=== PATIENT | female | born 1965 | race Caucasian/White ===

== ENCOUNTER 2023-10-30 14:08 | Outpatient (AMB) | payer BC, SELFPAY ==
[2023-10-30 14:25] VITALS: BP 140/72; PULSE 85; O2SAT 96; BMI 32.3
--- NOTE | 2023-10-30 14:25 | A.OFFPC_ITS ---
Vital Signs 10/30/23 14:25 Height 5 ft Weight 165 lb 4 oz BMI 32.3 BP 140/72 H Blood Pressure Location Rt brachial Position Sitting Pulse 85 Pulse Source Pulse Oximeter Pulse Oximetry (%) 96 Oxygen Delivery Method Room Air Intake Visit Reasons: New patient, High BP, Asthma Intake Note: pt is here to est care Last A1c was done by Endo who controls thyroid last month 7.3 Allergies aspirin Allergy (Intermediate, Verified 10/30/23 14:32) Difficulty Breathing Penicillins Allergy (Intermediate, Verified 10/30/23 14:32) Difficulty Breathing sulfate ion Allergy (Intermediate, Verified 10/30/23 14:32) Rash Tobacco use date assessed: 10/30/23 Dental Screening Dental Screen Date: 10/30/23 Did you have a dental visit in the last 12 months?: Yes Did you have a dental problem in the last 6 months where you did not have access to dental care?: No Was dental information given to patient?: Patient has dentist HPI New patient, High BP, Asthma HPI Details New pt is here to establish care. Pt sees endo due to diabetes and graves disease (Dr. Leos and Dr. Lombardo). Pt reports her A1C 2 months ago was 7.3. Pt has asthma (allergic). She just finished 5 years of injections. Pt sees a psychiatrist due to anxiety. Denies any SI and HI. Colon screen is up to date, repeat due in April. Mammo is up to date. 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 HTN: Blood pressure is managed with amlodipine-benazepril 5-10mg. Will have pt monitor her blood pressure at home and drop off readings. Dyslipidemia: On atorvastatin 20mg. Will continue this med and order labs. Denies chest pain, shortness of breath, headache, dizziness, and blurred vision. Pt reports dermatitis to her hands. She reports that this does itch and burn. ? eczema. Will refer to derm and send clobetasol. 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 1. Little interest or pleasure in doing things: not at all 2. Feeling down, depressed, or hopeless: not at all 3. Trouble falling or staying asleep, or sleeping too much: several days 4. Feeling tired or having little energy: not at all 5. Poor appetite or overeating: not at all 6. Feeling bad about yourself - or that you are a failure or have let yourself or your family down: not at all 7. Trouble concentrating on things, such as reading the newspaper or watching television: not at all 8. Moving or speaking so slowly that other people could have noticed. Or the opposite - being so fidgety or restless that you have been moving around a lot more than usual: not at all 9. Thoughts that you would be better off or of hurting yourself in some way: not at all Total score: 1 Depression Screening Interpretation: Negative Depression Screening Done: Yes 41229 - PHQ-9 Billing: Yes Source: Developed by Drs. Gunner Richard, Pamela Camarena, Ilya Ellis and colleagues, with an educational nyasia from [employer]. Thrive Questionnaire Date Thrive assessed: 10/30/23 I am a: Patient What is your living situation today?: I have a steady place to live Within the past 12 months, did the food you bought not last and you didn't have the money to get more?: Never true Within the past 12 months, did you worry whether your food would run out before you got money to buy more?: Never true Do you have trouble paying for medicines?: No Do you have trouble getting transportation to medical appointments?: No Do you have trouble paying your heating and electricity bill?: No Do you have trouble taking care of your child, family member or friend?: No Do you have trouble with day-to-day activities such as bathing, preparing meals, shopping, managing finances, etc.?: No Are you currently unemployed and looking for a job?: No Are you interested in more education?: No Currently or been in a relationship where the following occur: no concerns reported THRIVE Score: 0 AUDIT C Alcohol Use Questionnaire (AUDIT-C) 1. How often do you have a drink containing alcohol?: Never Total Score: 0 JENNIFER-7 AMB Questionnaire JENNIFER-7 Date JENNIFER - 7 assessed: 10/30/23 Feeling nervous, anxious, or on edge: 3 = Nearly every day Not being able to stop or control worryin = Nearly every day Worrying too much about different things: 3 = Nearly every day Trouble relaxin = More than half the days Being so restless that it is hard to sit still: 2 = More than half the days Becoming easily annoyed or irritable: 3 = Nearly every day Feeling afraid as if something awful might happen: 0 = Not at all Total JENNIFER-7 score (0-4 normal; 5-9 mild; 10-14 moderate; 15-21 severe): 16 Source: Developed by Drs. Gunner Richard, Pamela Camarena, Ilya Ellis and colleagues, with an educational nyasia from [employer]. JENNIFER-7 Assessment Billing JENNIFER-7 Assessment Tool: JENNIFER-7 Assessment 64912 (pt has a psychiatrist) Review of Systems Const Reports as per HPI Physical exam (Primary Care) Vital Signs: Last Vital Signs Pulse 85 10/30/23 14:25 BP 140/72 H 10/30/23 14:25 Pulse Ox 96 10/30/23 14:25 Oxygen Delivery Method Room Air 10/30/23 14:25 BMI result Body Mass Index 32.3 Tobacco/Smoking Status: Tobacco use Status Tobacco use date assessed 10/30/23 10/30/23 14:45 Patient Tobacco Use Status Never used Tobacco 10/30/23 14:45 e-Cigarette/Vaping Use Never Used 10/30/23 14:45 PHQ-9: PHQ-9 Score PHQ-9: Total score 1 10/30/23 15:16 Depression Screening Interpretation: Negative Thrive Assessment: Date of Thrive Assessment Date Thrive assessed 10/30/23 10/30/23 14:49 Currently or been in a relationship where the following occur: no concerns reported Const General: cooperative Nutritional Appearance: obese Orientation/consciousness: patient oriented x3 Resp Effort & Inspection: normal respiratory effort Auscultation: clear to auscultation bilaterally Cardio Rate: regular rate Rhythm: regular rhythm Heart sounds: S1 normal heart sound present and S2 normal heart sound present Skin Other: palmar aspect of bilat hands with cracking, patches of erythema, excoriations, splitting, ? eczema Neuro General: patient oriented x3 Extrem Right lower extremity: no edema Left lower extremity: no edema Psych Appearance: grossly normal Mental Status: mental status grossly normal Speech and movement: Normal speech and movement present Affect: normal affect Attitude: cooperative Thought process: Normal thought process present Thought content: Normal thought content present Insight: Good insight present (Psych) Judgement: Good judgement present (Psych) Assessment and Plan Assessment & Plan (1) Dermatitis: Code(s): L30.9 - Dermatitis, unspecified Plan: Referred to derm, clobetasol sent (2) HTN (hypertension): Code(s): I10 - Essential (primary) hypertension Plan: Pt will monitor her BP at home and drop off readings Plan The patient agreed to the use of a medical billing clerk for this encounter. Scribed for FABIAN Murray by Livier Loza medical billing clerk, on 10/30/2023 at 15:15 EST. Orders: Orders Complete Blood Count Auto Diff Today I10 - Essential (primary) hypertension Comprehensive [place]. Panel Fast Today I10 - Essential (primary) hypertension TSH reflex Free T4 Today I10 - Essential (primary) hypertension UA CC w/rflx Micro + Cult Today I10 - Essential (primary) hypertension Lipid Panel Today I10 - Essential (primary) hypertension Referrals Dermatology Referral L30.9 - Dermatitis, unspecified Medications: New clobetasol 0.05% 1 appl topical BID 60 grams 0RF 2 weeks Coding Level of Care Code New Pt Level 3 (96592) Diagnoses Dermatitis L30.9 HTN (hypertension) I10 Additional Codes JENNIFER-7 Assessment Billing - JENNIFER-7 Assessment Tool: JENNIFER-7 Assessment 50047 ([id number])
== END 2023-10-30 15:32 | disposition home or self-care (01) ==
PROVIDERS: PCP Nurse Practitioner Family; Visit Provider Nurse Practitioner Family
DX: L30.9 Dermatitis, unspecified (principal); I10 Essential (primary) hypertension
CPT/HCPCS: 99203

== ENCOUNTER 2024-02-26 06:07 | Outpatient (REF) | payer BC, SELFPAY ==
[2024-02-26 11:40] LABS: MANUAL DIFF FLAG NO
[2024-02-26 11:50] LABS: Basophils Absolute Auto 0.2 X10*3/uL (0.0-0.2); Basophils Percent Auto 1.5 % (0-2); Eosinophils Absolute Auto 0.6 X10*3/uL (0.0-0.4); Eosinophils Percent Auto 5.9 % (0-4); Hematocrit 41.3 % (37.0-47.0); Hemoglobin 13.4 g/dl (12.0-16.0); Imm Gran Abs Auto 0.03 X10*3/uL (0.00-0.03); Imm Gran Pct Auto 0.3 % (0.0-0.4); Lymphocytes Absolute Auto 3.3 X10*3/uL (1.2-4.9); Lymphocytes Percent Auto 33.6 % (20-40); Mean Corpuscular HGB Conc 32.4 g/dl (31.0-35.0); Mean Corpuscular Hemoglobin 28.3 pg (27.0-33.0); Mean Corpuscular Volume 87.3 fL (80.0-98.0); Mean Platelet Volume 9.5 fL (9.4-12.3); Monocytes Absolute Auto 0.7 X10*3/uL (0.1-1.2); Monocytes Percent Auto 7.5 % (2-11); Neutrophils Percent Auto 51.2 % (45-73); Platelet Count 398 X10*3/uL (160-400); Red Blood Count 4.73 X10*6/uL (4.20-5.50); Red Cell Distribution Width 13.7 % (11.0-16.0); White Blood Count 9.8 X10*3/uL (4.8-10.8)
[2024-02-26 11:54] LABS: Estimated Average Glucose 174 mg/dL; Hemoglobin A1c % 7.7 % (<6.0)
[2024-02-26 12:08] LABS: Alanine Aminotransferase 27 U/L (0-31); Albumin Level 4.3 g/dL (3.5-5.0); Alkaline Phosphatase 138 U/L (39-117); Anion Gap 15 (12-20); Aspartate Amino Transferase 17 U/L (5-31); Bilirubin Total 0.5 mg/dL (0.0-1.0); Blood Urea Nitrogen 15 mg/dL (9-16); Calcium 9.8 mg/dL (8.4-10.2); Carbon Dioxide 22 mmol/L (22-29); Chloride 107 mmol/L (96-108); Cholesterol 154 mg/dL (<200); Estimated Glomerular Filt Rate > 60; Glucose Fasting 198 mg/dL (60-99); HDL Cholesterol 51 mg/dL (>40); LDL Cholesterol Calculated 76 mg/dL (<100); Potassium 4.1 mmol/L (3.3-5.1); Sodium 140 mmol/L (135-145); Total Protein 7.4 g/dL (6.5-8.0); Triglycerides 136 mg/dL (<150)
[2024-02-26 12:29] LABS: TSH reflex Free T4 2.93 uIU/mL (0.32-4.0)
== END 2024-02-26 06:08 | disposition home or self-care (01) ==
LOC: HO.HMGCLDS 06:07
PROVIDERS: PCP Nurse Practitioner Family; Visit Provider Nurse Practitioner Family
DX: I10 Essential (primary) hypertension (principal); E11.9 Type 2 diabetes mellitus without complications
CPT/HCPCS: 36415; 80053; 80061; 83036; 84443; 85025

== ENCOUNTER 2024-02-28 05:30 | Outpatient (REF) | payer BC, SELFPAY ==
[2024-02-28 11:26] LABS: Appearance Urine Clear; Color Urine Yellow; Glucose Urine UA 100 mg/dL (Negative); Leukocyte Esterase Urine Negative (Negative); Nitrite Urine Negative (Negative); PH 5.5 (5.0-9.0); Urine Blood Negative (Negative); Urine Ketones Negative (Negative); Urine Protein Negative (Neg-Trace)
== END 2024-02-28 05:31 | disposition home or self-care (01) ==
LOC: HO.HMGCLNP 05:30
PROVIDERS: PCP Nurse Practitioner Family; Visit Provider Nurse Practitioner Family
DX: I10 Essential (primary) hypertension (principal)
CPT/HCPCS: 81003

== ENCOUNTER 2024-03-24 08:04 | Outpatient (AMB) | payer BC, SELFPAY ==
--- NOTE | 2024-03-24 08:18 | MHC.PC.OV ---
Vital Signs 03/24/24 08:22 Weight 166 lb 6 oz BP 110/68 Blood Pressure Location Rt brachial Position Sitting Pulse 72 Pulse Source Pulse Oximeter Pulse Oximetry (%) 98 Oxygen Delivery Method Room Air Intake Visit Reasons: DM followup Intake Note: Patient here for DM f/u. Allergies aspirin Allergy (Intermediate, Verified 03/24/24 08:20) Difficulty Breathing Penicillins Allergy (Intermediate, Verified 03/24/24 08:20) Difficulty Breathing sulfate ion Allergy (Intermediate, Verified 03/24/24 08:20) Rash metformin Adverse Reaction (Uncoded 03/24/24 08:21) rash Medication List - Last Reconciled 03/24/24 by Rodger Starr, NEGATIVE ASSEMBLER- albuterol (refill) 90 mcg/actuation mcg inhalation amlodipine-benazepril 5-10 mg 1 cap PO DAILY atenolol 25 mg PO DAILY atorvastatin 20 mg PO BEDTIME buspirone 5 mg PO BID cetirizine (Zyrtec) 10 mg PO DAILY PRN clobetasol 0.05% 1 appl topical BID 2 weeks clonazepam 0.25 mg PO TID fluticasone furoate-vilanterol 100-25 mcg/dose (Breo Ellipta) 1 inh inhalation DAILY methimazole 10 mg PO DAILY omeprazole magnesium (Prilosec OTC) 20 mg PO DAILY sennosides-docusate sodium 8.6-50 mg (Colace 2-In-1) 1 tab-cap PO BEDTIME sitagliptin phosphate (Januvia) 100 mg PO DAILY tirzepatide (Mounjaro) 2.5 mg (0.5 mL) subcut QWEEK 4 weeks Tobacco use date assessed: 10/30/23 Dental Screening Dental Screen Date: 10/30/23 HPI DM followup HPI Details Pt is a diabetic, on an ABELARDO and a statin. A1C in office today is 8.0. Due for microalbumin. Denies polyuria, polydipsia, and neuropathy. Pt denies any signs and symptoms of hypoglycemia and does know how to correct it. Pt was seeing endo but is no longer seeing them. Pt has been on januvia for quite some time. Will start mounjaro 2.5mg. Eye exam is scheduled. Will have her take half a tab of januvia when starting GLP-1, then stop the januvia altogether. 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 54450 - PHQ-9 Billing: Patient declined-do not bill Source: Developed by Drs. Gunner Richard, Pamela Camarena, Ilya Ellis and colleagues, with an educational nyasia from [employer] Thrive Questionnaire Date Thrive assessed: 03/17/24 I am a: Patient What is your living situation today?: I have a steady place to live Within the past 12 months, did the food you bought not last and you didn't have the money to get more?: I choose not to answer this question Within the past 12 months, did you worry whether your food would run out before you got money to buy more?: I choose not to answer this question Do you have trouble paying for medicines?: I choose not to answer this question Do you have trouble getting transportation to medical appointments?: I choose not to answer this question Do you have trouble paying your heating and electricity bill?: I choose not to answer this question Do you have trouble taking care of your child, family member or friend?: I choose not to answer this question Do you have trouble with day-to-day activities such as bathing, preparing meals, shopping, managing finances, etc.?: I choose not to answer this question Are you currently unemployed and looking for a job?: No Are you interested in more education?: No Please select the resources that you would like help with: Housing/Longterm Currently or been in a relationship where the following occur: I choose not to answer THRIVE Score: 0 AUDIT C Alcohol Use Questionnaire (AUDIT-C) 1. How often do you have a drink containing alcohol?: Never 2. How many drinks containing alcohol do you have on a typical day when you are drinking?: 1 or 2 3. How often do you have six or more drinks on one occasion?: Never Total Score: 0 JENNIFER-7 AMB Questionnaire JENNIFER-7 Date JENNIFER - 7 assessed: 10/30/23 Feeling nervous, anxious, or on edge: 1 = Several days Not being able to stop or control worryin = Several days Worrying too much about different things: 1 = Several days Trouble relaxin = Several days Being so restless that it is hard to sit still: 2 = More than half the days Becoming easily annoyed or irritable: 2 = More than half the days Feeling afraid as if something awful might happen: 0 = Not at all Total JENNIFER-7 score (0-4 normal; 5-9 mild; 10-14 moderate; 15-21 severe): 8 Source: Developed by Drs. Gunner Richard, Pamela Camarena, Ilya Ellis and colleagues, with an educational nyasia from [employer] JENNIFER-7 Assessment Billing JENNIFER-7 Assessment Tool: pt declined-do not bill Review of Systems Const Reports as per HPI Physical exam (Primary Care) Vital Signs: Last Vital Signs Pulse 72 03/24/24 08:22 BP 110/68 03/24/24 08:22 Pulse Ox 98 03/24/24 08:22 Oxygen Delivery Method Room Air 03/24/24 08:22 Tobacco/Smoking Status: Tobacco use Status Tobacco use date assessed 10/30/23 03/24/24 08:19 Patient Tobacco Use Status Never used Tobacco 03/24/24 08:19 e-Cigarette/Vaping Use Never Used 03/24/24 08:19 Thrive Assessment: Date of Thrive Assessment Date Thrive assessed 03/17/24 03/24/24 08:19 Currently or been in a relationship where the following occur: I choose not to answer Const General: cooperative Orientation/consciousness: patient oriented x3 Resp Effort & Inspection: normal respiratory effort Auscultation: clear to auscultation bilaterally Cardio Rate: regular rate Rhythm: regular rhythm Heart sounds: S1 normal heart sound present and S2 normal heart sound present Neuro General: patient oriented x3 Extrem Other: bilat feet: + sensation with use of monofilament, feet intact Psych Appearance: grossly normal Mental Status: mental status grossly normal Speech and movement: Normal speech and movement present Affect: normal affect Attitude: cooperative Thought process: Normal thought process present Thought content: Normal thought content present Insight: Good insight present (Psych) Judgement: Good judgement present (Psych) Results AMB Hemoglobin A1c AMB Hemoglobin A1c 8.0 % Last Edit by CRISTINA Almanza on 03/24/24 08:48 Results Reviewed Results Reviewed: Laboratory Last Values Hgb A1c (Clinic) 8.0 % (4.0-6.0) H 03/24/24 08:47 Assessment and Plan Assessment & Plan (1) Diabetes: Code(s): E11.9 - Type 2 diabetes mellitus without complications Plan: Labs ordered, starting mounjaro Plan The patient agreed to the use of a medical device assembler for this encounter. Scribed for FABIAN Murray by Livier Loza medical device assembler, on 03/24/2024 at 08:30 EST. Orders: Orders TSH reflex Free T4 Today E11.9 - Type 2 diabetes mellitus without complications Complete Blood Count Auto Diff Today E11.9 - Type 2 diabetes mellitus without complications Comprehensive [place]. Panel Fast Today E11.9 - Type 2 diabetes mellitus without complications UA CC w/rflx Micro + Cult Today E11.9 - Type 2 diabetes mellitus without complications Lipid Panel Today E11.9 - Type 2 diabetes mellitus without complications Microalbumin, Random (w Creat) Today E11.9 - Type 2 diabetes mellitus without complications AMB Hemoglobin A1c Today E11.9 - Type 2 diabetes mellitus without complications Medications: New tirzepatide (Mounjaro) 2.5 mg (0.5 mL) subcut QWEEK 2 mL 0RF 4 weeks Coding Level of Care Code Est Pt Level 3 (27740) Diagnoses Diabetes E11.9
[2024-03-24 08:22] VITALS: BP 110/68; PULSE 72; O2SAT 98
== END 2024-03-24 10:22 | disposition home or self-care (01) ==
PROVIDERS: PCP Nurse Practitioner Family; Visit Provider Nurse Practitioner Family
DX: E11.9 Type 2 diabetes mellitus without complications (principal)
CPT/HCPCS: 83036; 99213

== ENCOUNTER 2024-06-10 08:09 | Outpatient (AMB) | payer BC, SELFPAY ==
--- NOTE | 2024-06-10 08:08 | MHC.OFFWIV ---
Intake Vital Signs 06/10/24 08:10 Height 5 ft Weight 165 lb BMI 32.2 BP 120/80 Blood Pressure Location Rt brachial Position Sitting Pulse 86 Pulse Source Pulse Oximeter Temp 97.9 F Temp Source Oral Pulse Oximetry (%) 98 Oxygen Delivery Method Room Air Intake Visit Reasons: EP ? sinus infection Intake Note: Patient here for sinus pressure, headache that has been going on for about 1 month now. Patient Tobacco Use Status: Never used Tobacco Allergies aspirin Allergy (Intermediate, Verified 06/10/24 08:12) Difficulty Breathing Penicillins Allergy (Intermediate, Verified 06/10/24 08:12) Difficulty Breathing sulfate ion Allergy (Intermediate, Verified 06/10/24 08:12) Rash metformin Adverse Reaction (Uncoded 06/10/24 08:12) rash Do you need a note to return to daycare/school/sports/work: No HPI HPI Comments History of Present Illness Details Patient is a 59-year-old female complaining of 1 month of head congestion, sinus pain and now what has developed into bilateral ear pain. She denies any fevers, cough, chest congestion or shortness of breath. She states she takes Zyrtec each day and this has not helped. She tells me she usually gets 2 sinus infections a year and she is prescribed doxycycline because she is highly allergic to penicillins. 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 Current occupational exposures/hazards: No Cognitive needs: No Hearing needs: No Vision needs: No Review of Systems Const All systems reviewed & are unremarkable except as noted in HPI and below Physical Exam Vital Signs: Last Vital Signs Temp 97.9 F 06/10/24 08:10 Pulse 86 06/10/24 08:10 BP 120/80 06/10/24 08:10 Pulse Ox 98 06/10/24 08:10 Oxygen Delivery Method Room Air 06/10/24 08:10 BMI result Body Mass Index 32.2 Const General: cooperative, healthy appearing, comfortable and no acute distress Orientation/consciousness: patient oriented x3 Limitations: no limitations HEENT Head: Yes normal to inspection Ears: hearing grossly normal bilaterally, external ears normal and TM's normal bilaterally General nose exam: Normal external nose present, Normal nares present and No nasal discharge present Face and sinus: Yes normal facial exam and Yes sinuses nontender Mouth: Normal oral and palatal mucosa present and moist mucous membranes Throat: Yes tonsils normal, Yes uvula midline and Yes posterior oropharynx abnormal (Erythema) Eyes General: appearance normal, both eyes and all related structures Neck Neck: Yes normal visual inspection Resp Effort & Inspection: normal respiratory effort, able to speak in complete sentences, no respiratory distress, not tachypneic, no tripod positioning and no use of accessory muscles Skin General skin exam: no rashes or lesions noted Neuro General: patient oriented x3 Extrem General: Yes normal to inspection and Yes no clubbing, cyanosis or edema Assessment & Plan Assessment & Plan (1) URI (upper respiratory infection): Code(s): J06.9 - Acute upper respiratory infection, unspecified Qualifiers: URI type: unspecified URI Qualified Code(s): J06.9 - Acute upper respiratory infection, unspecified Plan: As it has been a month and she has not recovered, this sinusitis could be bacterial so I sent doxycycline to her pharmacy. Recommended she use a Neti pot with distilled water and nasal spray. Plan See above Medications: New doxycycline hyclate 100 mg PO BID 14 tabs 0RF Coding Level of Care Code Est Pt Level 3 (44592) Diagnoses Upper respiratory tract infection, unspecified type J06.9 URI type: unspecified URI
[2024-06-10 08:10] VITALS: BP 120/80; PULSE 86; TEMP 36.6; O2SAT 98; BMI 32.2
== END 2024-06-10 08:29 | disposition home or self-care (01) ==
PROVIDERS: PCP Nurse Practitioner Family; Visit Provider Physician Assistant
DX: J06.9 Acute upper respiratory infection, unspecified (principal)

== ENCOUNTER → 2024-06-10 08:09 | Outpatient (BNVA) | payer BC, SELFPAY | PROVIDERS: PCP Nurse Practitioner Family ==

== ENCOUNTER 2024-07-24 06:31 | Outpatient (REF) | payer BC, SELFPAY ==
[2024-07-24 11:03] LABS: MANUAL DIFF FLAG NO
[2024-07-24 11:05] LABS: Basophils Absolute Auto 0.2 X10*3/uL (0.0-0.2); Basophils Percent Auto 1.5 % (0-2); Eosinophils Absolute Auto 0.5 X10*3/uL (0.0-0.4); Eosinophils Percent Auto 4.8 % (0-4); Hematocrit 39.8 % (37.0-47.0); Hemoglobin 12.6 g/dl (12.0-16.0); Imm Gran Abs Auto 0.04 X10*3/uL (0.00-0.03); Imm Gran Pct Auto 0.4 % (0.0-0.4); Lymphocytes Absolute Auto 3.1 X10*3/uL (1.2-4.9); Lymphocytes Percent Auto 31.8 % (20-40); Mean Corpuscular HGB Conc 31.7 g/dl (31.0-35.0); Mean Corpuscular Hemoglobin 27.6 pg (27.0-33.0); Mean Corpuscular Volume 87.1 fL (80.0-98.0); Mean Platelet Volume 9.6 fL (9.4-12.3); Monocytes Absolute Auto 0.8 X10*3/uL (0.1-1.2); Monocytes Percent Auto 7.6 % (2-11); Neutrophils Absolute Auto 5.3 x10*3/uL (2.0-8.3); Neutrophils Percent Auto 53.9 % (45-73); Platelet Count 379 X10*3/uL (160-400); Red Blood Count 4.57 X10*6/uL (4.20-5.50); Red Cell Distribution Width 13.5 % (11.0-16.0); White Blood Count 9.9 X10*3/uL (4.8-10.8)
[2024-07-24 11:25] LABS: Alanine Aminotransferase 34 U/L (0-31); Albumin Level 4.1 g/dL (3.5-5.0); Alkaline Phosphatase 103 U/L (39-117); Anion Gap 13 (12-20); Aspartate Amino Transferase 27 U/L (5-31); Bilirubin Total 0.4 mg/dL (0.0-1.0); Blood Urea Nitrogen 15 mg/dL (9-16); Calcium 8.7 mg/dL (8.4-10.2); Carbon Dioxide 21 mmol/L (22-29); Chloride 105 mmol/L (96-108); Cholesterol 155 mg/dL (<200); Estimated Glomerular Filt Rate > 60; Gamma Glutamyl Transpeptidase 31 U/L (7-33); Glucose Fasting 185 mg/dL (60-99); HDL Cholesterol 48 mg/dL (>40); LDL Cholesterol Calculated 77 mg/dL (<100); Potassium 4.1 mmol/L (3.3-5.1); Sodium 135 mmol/L (135-145); Total Protein 6.9 g/dL (6.5-8.0); Triglycerides 152 mg/dL (<150)
[2024-07-24 11:31] LABS: Appearance Urine Clear; Color Urine Yellow; Glucose Urine UA 500 mg/dL (Negative); Leukocyte Esterase Urine Negative (Negative); Nitrite Urine Negative (Negative); PH 5.5 (5.0-9.0); Specific Gravity - Urine 1.015 (1.005-1.025); Urine Blood Negative (Negative); Urine Ketones Negative (Negative); Urine Protein Negative (Neg-Trace)
[2024-07-24 11:40] LABS: TSH reflex Free T4 1.85 uIU/mL (0.32-4.0)
[2024-07-24 11:41] LABS: Creatinine Urine 106.76 mg/dL; Microalbum/Creatinine Ratio Ur 10.3 ug/mg cr (<30)
[2024-07-29 06:19] LABS: Alk.Phos Iso. Macrohepatic 0 % (<=0); Alk.Phos Isoenzymes Bone 36 % (28-66); Alk.Phos Isoenzymes Intest 0 % (1-24); Alk.Phos Isoenzymes Liver 64 % (25-69); Alk.Phos Isoenzymes Placental 0 % (<=0); Alk.Phos Isoenzymes Total 93 U/L (37-153)
== END 2024-07-24 06:32 | disposition home or self-care (01) ==
LOC: HO.HMGCLDS 06:31
PROVIDERS: PCP Nurse Practitioner Family; Visit Provider Nurse Practitioner Family
DX: E11.9 Type 2 diabetes mellitus without complications (principal); R74.8 Abnormal levels of other serum enzymes
CPT/HCPCS: 36415; 80053; 80061; 81003; 82043; 82570; 82977; 84080; 84443; 85025

== ENCOUNTER 2024-08-10 07:51 | Outpatient (AMB) | payer BC, SELFPAY ==
[2024-08-10 07:58] VITALS: BP 122/80; PULSE 82; O2SAT 98; BMI 32.6
--- NOTE | 2024-08-10 07:58 | MHC.PC.OV ---
Vital Signs 08/10/24 07:58 Height 5 ft Weight 167 lb BMI 32.6 BP 122/80 Blood Pressure Location Rt brachial Position Sitting Pulse 82 Pulse Source Pulse Oximeter Pulse Oximetry (%) 98 Intake Visit Reasons: follow up Intake Note: pt is here for follow up regarding bloating and stomach pain Rehabilitation Counselor Required: No Accompanied by: Self / Same As Patient Allergies aspirin Allergy (Intermediate, Verified 08/10/24 07:58) Difficulty Breathing Penicillins Allergy (Intermediate, Verified 08/10/24 07:58) Difficulty Breathing sulfate ion Allergy (Intermediate, Verified 08/10/24 07:58) Rash metformin Adverse Reaction (Uncoded 06/10/24 08:12) rash Medication List - Last Reconciled 08/10/24 by VARINDER IsaacsP- albuterol (refill) 90 mcg/actuation mcg inhalation amlodipine-benazepril 5-10 mg 1 cap PO DAILY atenolol 25 mg PO DAILY atorvastatin 20 mg PO BEDTIME buspirone 5 mg PO BID cetirizine (Zyrtec) 10 mg PO DAILY PRN clobetasol 0.05% 1 appl topical BID 2 weeks clonazepam 0.25 mg PO TID fluticasone furoate-vilanterol 100-25 mcg/dose (Breo Ellipta) 1 inh inhalation DAILY levothyroxine 112 mcg PO DAILY methimazole 10 mg PO DAILY pantoprazole 40 mg PO DAILY sennosides-docusate sodium 8.6-50 mg (Colace 2-In-1) 1 tab-cap PO BEDTIME simethicone 500 mg PO DAILY PRN 30 days sitagliptin phosphate (Januvia) 100 mg PO DAILY tirzepatide (Mounjaro) 2.5 mg (0.5 mL) subcut QWEEK Tobacco use date assessed: 10/30/23 Dental Screening Dental Screen Date: 10/30/23 HPI follow up HPI Details Chief Complaint The patient complains of significant abdominal bloating causing shortness of breath. History of Present Illness The patient is a 59-year-old female presenting with concerns regarding abdominal bloating and shortness of breath. The issue has been progressively worsening and leads the patient to feel extremely bloated, to the extent that breathing is difficult. The bloating was so severe on Friday night that she considered seeking emergency medical attention. This symptomatology has reportedly been present since before her thyroid procedure and is now getting worse. The patient has a history of a hiatal hernia and esophageal damage due to stress. She reports significant work-related stress as a contributing factor. Recent laboratory tests showed mildly elevated liver enzymes but nothing alarmingly abnormal. Her dietary intake and possible hormonal factors were noted as potential contributors. The patient has been diagnosed with diabetes mellitus, managed with asthma medications containing steroids that elevate her blood glucose levels. These medications have been necessary for nighttime asthma symptoms. She has been informed about the impact of diabetes on preparations for a colonoscopy, which is planned for September. The patient associates the bloating with diabetes management challenges and has sought [id number]-[id number] solutions such as simethicone, without relief, leading up to gastroenterology consultation. Lastly, concerns about gluten intolerance and IBS as differential diagnoses were considered. todays a1c is 8.1. Social History - Reports significant job-related stress impacting her health. - States a decline in physical activity previously maintained for health. Health Maintenance - Due for a pneumonia vaccination. - Planned consultation for colonoscopy due to diabetes considerations. - Regular eye exams for thyroid eye disease. Review of Systems - Gastrointestinal: Reports significant abdominal bloating. - Respiratory: Denies neuropathy in feet; notes shortness of breath related to bloating. - Endocrine: Reports diabetes and thyroid eye disease symptoms. - Musculoskeletal: Denies changes related to the current issues in foot sensations. Physical Exam General: Cooperative, healthy appearing, comfortable, no acute distress and well developed Orientation: Patient oriented x3 Limitations: No limitations Head: Normal to inspection Ears: Hearing grossly normal bilaterally Nose: Normal external nose present Face and sinus: Normal facial exam Eyes: Appearance normal, both eyes and all related structures Neck: Normal visual inspection and Yes full ROM Respiratory: Normal respiratory effort and able to speak in complete sentences. Clear to auscultation bilaterally Cardiovascular: Regular rate and rhythm. Normal S1 and S2 GI: Normal to inspection. Soft to palpation and nontender Skin: No rashes or lesions noted Neuro: Patient oriented x3 Extremities: Normal to inspection, + sensation with use of monofilament Results - Labs: Elevated liver enzyme levels by three points. Plan - Abdominal Bloating: Recommend trial of simethicone for symptomatic relief until gastroenterology consult. Consider gastrointestinal motility issues or dietary causes, address these with patient during consultation. - Diabetes Mellitus: Monitor blood glucose closely and discuss impact of asthma steroids on glucose levels. Plan for hemoglobin A1C evaluation in four months (currently seeing endo). Ensure diabetes management is factored into colonoscopy preparation. - Thyroid Eye Disease: Continue monitoring symptoms and manage with eye protection and symptom mitigation, as previously discussed. - Asthma: Continued use of steroid inhalers, despite impact on glucose well-understood, prioritize breathing comfort and asthma control. - Esophageal Damage/Hiatal Hernia: Discuss potential effects with warehouse shipping receiving clerk during upcoming consult. - Irritable Bowel Syndrome: Consider potential flair-ups; advise dietary reassessment under professional guidance. Patient was informed and verbally consented to the use of an ambient scribe for clinic note documentation during this visit. Discussion Notes I discussed with the patient the likely correlation between stress, IBS, and the recent abdominal bloating. We reviewed management options for symptomatic relief, focusing on abvb-jku-pmhdddh medications like simethicone and dietary modifications. I advised that fibers or gluten could be potential triggers but directed the patient toward a comprehensive evaluation by a warehouse shipping receiving clerk for a formal diagnostic workup. We addressed the implications of steroid use for asthma on her overall diabetes control and considered this in her glucose level management. Additionally, vaccination prophylaxis for pneumonia was recommended. Patient Instructions - Use simethicone as directed for bloating, follow up with GI. - Follow up with gastroenterology consultation in September. - Arrange and attend appointments for diabetes and eye follow-up. - Engage in stress-reducing activities regularly. - Consider pneumonia vaccination according to schedule. 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 1. Little interest or pleasure in doing things: not at all 2. Feeling down, depressed, or hopeless: not at all 3. Trouble falling or staying asleep, or sleeping too much: not at all 4. Feeling tired or having little energy: not at all 5. Poor appetite or overeating: not at all 6. Feeling bad about yourself - or that you are a failure or have let yourself or your family down: not at all 7. Trouble concentrating on things, such as reading the newspaper or watching television: not at all 8. Moving or speaking so slowly that other people could have noticed. Or the opposite - being so fidgety or restless that you have been moving around a lot more than usual: not at all 9. Thoughts that you would be better off or of hurting yourself in some way: not at all Total score: 0 Depression Screening Interpretation: Negative Depression Screening Done: Yes 63627 - PHQ-9 Billing: Yes Source: Developed by Drs. Gunner Richard, Pamela Camarena, Ilya Ellis and colleagues, with an educational nyasia from [employer]. Thrive Questionnaire Date Thrive assessed: 08/10/24 I am a: Patient What is your living situation today?: I have a steady place to live Within the past 12 months, did the food you bought not last and you didn't have the money to get more?: I choose not to answer this question Within the past 12 months, did you worry whether your food would run out before you got money to buy more?: I choose not to answer this question Do you have trouble paying for medicines?: I choose not to answer this question Do you have trouble getting transportation to medical appointments?: I choose not to answer this question Do you have trouble paying your heating and electricity bill?: I choose not to answer this question Do you have trouble taking care of your child, family member or friend?: I choose not to answer this question Do you have trouble with day-to-day activities such as bathing, preparing meals, shopping, managing finances, etc.?: I choose not to answer this question Are you currently unemployed and looking for a job?: No Are you interested in more education?: No Please select the resources that you would like help with: None Currently or been in a relationship where the following occur: I choose not to answer THRIVE Score: 0 JENNIFER-7 AMB Questionnaire JENNIFER-7 Date JENNIFER - 7 assessed: 10/30/23 Source: Developed by Drs. Gunner Richard, Pamela Camarena, Ilya Ellis and colleagues, with an educational nyasia from [employer]. Physical exam (Primary Care) Vital Signs: Last Vital Signs Pulse 82 08/10/24 07:58 BP 122/80 08/10/24 07:58 Pulse Ox 98 08/10/24 07:58 BMI result Body Mass Index 32.6 Tobacco/Smoking Status: Tobacco use Status Tobacco use date assessed 10/30/23 08/10/24 08:01 Patient Tobacco Use Status Never used Tobacco 08/10/24 08:01 e-Cigarette/Vaping Use Never Used 08/10/24 08:01 PHQ-9: PHQ-9 Score PHQ-9: Total score 0 08/10/24 08:08 Depression Screening Interpretation: Negative Thrive Assessment: Date of Thrive Assessment Date Thrive assessed 08/10/24 08/10/24 08:01 Currently or been in a relationship where the following occur: I choose not to answer Results AMB Hemoglobin A1c AMB Hemoglobin A1c 8.1 % Last Edit by John Yun CMA on 08/10/24 08:44 Immunizations pneumoc 20-bairon conj-dip cr(PF) 0.5 mL IM syringe Performing Provider: FABIAN Isaacs [place] [facility] [place] [facility] Administered by: John Yun CMA on 08/10/24 08:54 Dose Route Admin Location Dispensed Lot Number Expiration Date [facility] Unit Tender 0.5 mL IM Right Deltoid 0.5 mL [id number] 12/19/25 [id number] [employer]Portal[employer]/PFIZER VIS Given Date VIS Provided VIS Publication Date 08/10/24 Single Vaccine 21 Eligibility Eligibility Date Funding Source Not [facility] Eligible 08/10/24 Private Results Reviewed Results Reviewed: Laboratory Last Values Hgb A1c (Clinic) 8.1 % (4.0-6.0) H 08/10/24 08:44 Coding Level of Care Code Est Pt Level 3 (85949) Diagnoses Bloating R14.0 Additional Codes PHQ-9 - 96947 - PHQ-9 Billing: Yes ([id number]) Assessment & Plan Assessment & Plan (1) Bloating: Code(s): R14.0 - Abdominal distension (gaseous) Category: Medical Plan ' Orders: Orders Endomysial IgA rflx Titer Today R14.0 - Abdominal distension (gaseous) Pneumococcal 20 Immunization Today Z23 - Encounter for immunization Transglutaminase Ab IgG Today R14.0 - Abdominal distension (gaseous) AMB Hemoglobin A1c Today Z13.9 - Encounter for screening, unspecified Medications: New pantoprazole 40 mg PO DAILY 90 tabs 0RF simethicone 500 mg PO DAILY 30 days PRN 30 caps 0RF bloating
== END 2024-08-10 08:58 | disposition home or self-care (01) ==
PROVIDERS: PCP Nurse Practitioner Family; Visit Provider Nurse Practitioner Family
DX: Z23 Encounter for immunization (principal); R14.0 Abdominal distension (gaseous); Z13.9 Encounter for screening, unspecified

== ENCOUNTER → 2024-08-10 07:51 | Outpatient (BNVA) | payer BC, SELFPAY | PROVIDERS: PCP Nurse Practitioner Family; Visit Provider Nurse Practitioner Family | DX: R14.0 Abdominal distension (gaseous) (principal); E11.9 Type 2 diabetes mellitus without complications; Z23 Encounter for immunization | CPT/HCPCS: 83036; 90471; 90677; 96127 ==

== ENCOUNTER 2024-12-21 09:22 | Outpatient (AMB) | payer OTHER, SELFPAY ==
--- NOTE | 2024-12-21 09:24 | MHC.PC.OV ---
Vital Signs 12/21/24 09:26 Height 5 ft Weight 164 lb BMI 32.0 BP 120/80 Blood Pressure Location Lt brachial Position Sitting Respiration 18 Pulse 94 Pulse Source Pulse Oximeter Temp 98.2 F Temp Source Oral Pulse Oximetry (%) 97 Oxygen Delivery Method Room Air Intake Visit Reasons: 4 months f/up Intake Note: Pt is here today for 4 months follow up visit on DM. Allergies aspirin Allergy (Intermediate, Verified 12/21/24 10:20) Difficulty Breathing Penicillins Allergy (Intermediate, Verified 12/21/24 10:20) Difficulty Breathing sulfate ion Allergy (Intermediate, Verified 12/21/24 10:20) Rash metformin Adverse Reaction (Uncoded 12/21/24 10:20) rash Medication List - Last Reconciled 12/21/24 by MARCOS Isaacs- albuterol (refill) 90 mcg/actuation mcg inhalation amlodipine-benazepril 5-10 mg 1 cap PO DAILY atenolol 25 mg PO DAILY atorvastatin 20 mg PO BEDTIME buspirone 5 mg PO BID cetirizine (Zyrtec) 10 mg PO DAILY PRN clobetasol 0.05% 1 appl topical BID 2 weeks clonazepam 0.25 mg PO TID fluticasone furoate-vilanterol 100-25 mcg/dose (Breo Ellipta) 1 inh inhalation DAILY levothyroxine 112 mcg PO DAILY methimazole 10 mg PO DAILY pantoprazole 40 mg PO DAILY sennosides-docusate sodium 8.6-50 mg (Colace 2-In-1) 1 tab-cap PO BEDTIME simethicone 500 mg PO DAILY PRN 30 days sitagliptin phosphate (Januvia) 100 mg PO DAILY Tobacco use date assessed: 12/21/24 Dental Screening Dental Screen Date: 12/21/24 Did you have a dental visit in the last 12 months?: Yes Did you have a dental problem in the last 6 months where you did not have access to dental care?: No Was dental information given to patient?: Patient has dentist HPI 4 months f/up HPI Details Chief Complaint Follow-up for diabetes management and medication review. History of Present Illness The patient is a 59-year-old female presenting for a follow-up regarding her diabetes management. She has been engaged with her photolithographic stripper mainly concerning thyroid dysfunction but has also recently addressed her diabetic condition. She does not tolerate metformin and opts against GLP-1 agonists, currently managing her condition with Januvia (sitagliptin), with a noted HbA1c of 7.8%. While she is content with her glycemic control, it was advised to aim for an HbA1c between 6% to 7%. She is currently unemployed, potentially impacting her overall daily lifestyle management. No neuropathy is reported, and she opted out of a foot examination. Additionally, she is under surveillance for gastrointestinal symptoms including bloating and potential Leonard's esophagus, following prior colonoscopy and endoscopy. Social History - Currently laid off from employment, impacting daily activity and lifestyle management. - No detailed dietary intake, exercise regimen, or substance use discussed. Health Maintenance - Colonoscopy and endoscopy performed, consideration of Leonard's esophagus, no interventions recommended at this time. Review of Systems - Endocrine: Reports intolerance to metformin, managed with Januvia, and desires no GLP-1 agonists at present. - Gastrointestinal: Denies new symptoms but reports previous bloating with past colonoscopy and endoscopy. - Neurological: Denies any symptoms of neuropathy. Physical Exam General: Cooperative, healthy appearing, comfortable, no acute distress and well developed Orientation: Patient oriented x3 Limitations: No limitations Head: Normal to inspection Ears: Hearing grossly normal bilaterally Nose: Normal external nose present Face and sinus: Normal facial exam Eyes: Appearance normal, both eyes and all related structures Neck: Normal visual inspection and Yes full ROM Respiratory: Normal respiratory effort and able to speak in complete sentences. Clear to auscultation bilaterally Cardiovascular: Regular rate and rhythm. Normal S1 and S2 GI: Normal to inspection. Soft to palpation and nontender Skin: No rashes or lesions noted Neuro: Patient oriented x3 Extremities: Normal to inspection, declined foot exam Results Plan The patient will be maintained on her current diabetes management with Januvia, noting her intolerance to metformin and avoidance of GLP-1 agonists. Although she is satisfied with her HbA1c, aiming for a range of 6%-7% is advised for optimal control. Current statin and ABELARDO inhibitor therapy will continue for hyperlipidemia and hypertension. She is to follow up with her compounding and finishing supervisor for assessment of her bloating and possible Leonard?s Esophagus. Discussion Notes During our discussion, I emphasized our collective goal to aim for improved glycemic control, ideally bringing her HbA1c to 6%-7%. The patient expressed contentment with her current diabetes management plan. I reassured her about continuing her current medication regimen, including Januvia, statins, and ABELARDO inhibitors. The patient was informed of the necessity to follow up with her compounding and finishing supervisor for persistent bloating symptoms and monitor any progression concerning possible Leonard's Esophagus. She was also advised about the importance of ongoing surveillance through laboratory testing, which was ordered today. Patient Instructions - Continue current medication regimen as prescribed. - Follow up with compounding and finishing supervisor for bloating and gastrointestinal concerns. - Visit the lab as instructed to complete the pending tests. - Monitor for any new symptoms and report if anything unusual occurs. 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 1. Little interest or pleasure in doing things: more than half the days 2. Feeling down, depressed, or hopeless: not at all 3. Trouble falling or staying asleep, or sleeping too much: not at all 4. Feeling tired or having little energy: more than half the days 5. Poor appetite or overeating: not at all 6. Feeling bad about yourself - or that you are a failure or have let yourself or your family down: not at all 7. Trouble concentrating on things, such as reading the newspaper or watching television: not at all 8. Moving or speaking so slowly that other people could have noticed. Or the opposite - being so fidgety or restless that you have been moving around a lot more than usual: not at all 9. Thoughts that you would be better off or of hurting yourself in some way: not at all Total score: 4 Depression Screening Interpretation: Negative Depression Screening Done: Yes 93628 - PHQ-9 Billing: Yes Source: Developed by Drs. Gunner Richard, Pamela Camarena, Ilya Ellis and colleagues, with an educational nyasia from [employer]. Thrive Questionnaire Date Thrive assessed: 12/21/24 I am a: Patient What is your living situation today?: I have a steady place to live Within the past 12 months, did the food you bought not last and you didn't have the money to get more?: I choose not to answer this question Within the past 12 months, did you worry whether your food would run out before you got money to buy more?: I choose not to answer this question Do you have trouble paying for medicines?: I choose not to answer this question Do you have trouble getting transportation to medical appointments?: No Do you have trouble paying your heating and electricity bill?: No Do you have trouble taking care of your child, family member or friend?: I choose not to answer this question Do you have trouble with day-to-day activities such as bathing, preparing meals, shopping, managing finances, etc.?: No Are you currently unemployed and looking for a job?: Yes Are you interested in more education?: No Please select the resources that you would like help with: None Currently or been in a relationship where the following occur: I choose not to answer THRIVE Score: 0 AUDIT C Alcohol Use Questionnaire (AUDIT-C) 1. How often do you have a drink containing alcohol?: Never 3. How often do you have six or more drinks on one occasion?: Never Total Score: 0 JENNIFER-7 AMB Questionnaire JENNIFER-7 Date JENNIFER - 7 assessed: 12/21/24 Feeling nervous, anxious, or on edge: 2 = More than half the days Not being able to stop or control worryin = More than half the days Worrying too much about different things: 2 = More than half the days Trouble relaxin = More than half the days Being so restless that it is hard to sit still: 0 = Not at all Becoming easily annoyed or irritable: 0 = Not at all Feeling afraid as if something awful might happen: 0 = Not at all Total JENNIFER-7 score (0-4 normal; 5-9 mild; 10-14 moderate; 15-21 severe): 8 Source: Developed by Drs. Gunner Richard, Pamela Camarena, Ilya Ellis and colleagues, with an educational nyasia from [employer]. JENNIFER-7 Assessment Billing JENNIFER-7 Assessment Tool: JENNIFER-7 Assessment 22390 Physical exam (Primary Care) Vital Signs: Last Vital Signs Temp 98.2 F 12/21/24 09:26 Pulse 94 12/21/24 09:26 Resp 18 12/21/24 09:26 BP 120/80 12/21/24 09:26 Pulse Ox 97 12/21/24 09:26 Oxygen Delivery Method Room Air 12/21/24 09:26 BMI result Body Mass Index 32.0 Tobacco/Smoking Status: Tobacco use Status Tobacco use date assessed 12/21/24 12/21/24 09:27 Patient Tobacco Use Status Never used Tobacco 12/21/24 09:27 e-Cigarette/Vaping Use Never Used 12/21/24 09:24 PHQ-9: PHQ-9 Score PHQ-9: Total score 4 12/21/24 09:54 Depression Screening Interpretation: Negative Thrive Assessment: Date of Thrive Assessment Date Thrive assessed 12/21/24 12/21/24 09:27 Currently or been in a relationship where the following occur: I choose not to answer Results AMB Hemoglobin A1c AMB Hemoglobin A1c 7.8 % Last Edit by NEHEMIAH Calhoun on 12/21/24 09:54 Results Reviewed Results Reviewed: Laboratory Last Values Hgb A1c (Clinic) 7.8 % (4.0-6.0) H 12/21/24 09:40 Coding Level of Care Code Est Pt Level 3 (34817) Diagnoses Diabetes E11.9 Additional Codes JENNIFER-7 Assessment Billing - JENNIFER-7 Assessment Tool: JENNIFER-7 Assessment 04849 ([id number]) PHQ-9 - 74734 - PHQ-9 Billing: Yes ([id number]) Assessment & Plan Assessment & Plan (1) Diabetes: Code(s): E11.9 - Type 2 diabetes mellitus without complications Category: Medical Plan . Orders: Orders AMB Hemoglobin A1c Today Z13.9 - Encounter for screening, unspecified Complete Blood Count Auto Diff Today E11.9 - Type 2 diabetes mellitus without complications Comprehensive [place]. Panel Fast Today E11.9 - Type 2 diabetes mellitus without complications UA CC w/rflx Micro + Cult Today E11.9 - Type 2 diabetes mellitus without complications Vitamin D 25-OH Total Today E11.9 - Type 2 diabetes mellitus without complications TSH reflex Free T4 Today E11.9 - Type 2 diabetes mellitus without complications Lipid Panel Today E11.9 - Type 2 diabetes mellitus without complications
[2024-12-21 09:26] VITALS: BP 120/80; PULSE 94; RESP 18; TEMP 36.8; O2SAT 97; BMI 32.0
--- OUTSIDE RECORDS SUMMARY | 2024-12-21 10:08 | XMS_ITS | Encounter Summary ---
Author Organization [facility] Address [address] [place] [address] Care Team Providers Care Volunteer Firefighter Name Role Phone Rodger Starr NP Primary Care Provider [phone] Encounter Details Date Type Department Care Team ([facility] st Contact Info) Description 10/26/2024 Lab Requisition [facility] - Main Lab [address] [facility] [place] [address] Alexandre Sharma MD [address] [facility] [address] [place] [address] Personal history of colon polyps, unspecified; Gastro-esophageal reflux disease without esophagitis Social History Tobacco Use Types Packs/Day Years Used Date Smoking Tobacco: Never Alcohol Use Standard Drinks/Week Comments Yes 0 (1 standard drink = 0.6 oz pur e alcohol) Comments Unknown Sex and Gender Information Value Date Recorded Sex Assigned at Not on file Legal Sex Female 1:49 AM EST Gender Identity Not on file Sexual Orientation Not on file documented as of this encounter Plan of Treatment Not on file documented as of this encounter Procedures Procedure Name Priority Date/Time Associated Diagnosis Comments TISSUE EXAM Routine 10/26/2024 Personal history of colon polyps, unspecified Gastro-esophageal reflux disease without esophagitis documented in this encounter Results * Tissue Exam (10/26/2024) Final Diagnosis A. Large Intestine, Cecum, polyp biopsy: - Tubular adenoma. B. Large Intestine, Transverse Colon, polyp: - Tubular adenoma. C. Esophagus, distal biopsy: - Focal Leonard's mucosa. - Negative for dysplasia. D. Esophagus, mid biopsy: - Esophageal squamous mucosa with no specific pathologic changes. - Negative for intraepithelial eosinophils. 10/27/2024 11:[address] [facility] Clinical Information Personal history of colonic polyps Heartburn, gastro-esophageal reflux disease R/O Leonard's 10/27/2024 11:[address] [facility] Gross Description A. Large Intestine, Cecum, polyp biopsy: Labeled cecum polyp biopsy . Received in formalin is a 0.2 cm irregular celestin mucosal tissue fragment which is wrapped in paper include in toto in one cassette, one piece, multiple levels on one slide. B. Large Intestine, Transverse Colon, polyp: Labeled transverse colon polyp . Received in formalin is a 0.4 cm irregular celestin mucosal tissue fragment which is wrapped in paper and submitted in toto in one cassette, one piece, multiple levels on one slide. C. Esophagus, distal biopsy: Labeled distal esophagus biopsy . Received in formalin is a 0.2 cm irregular pink-white mucosal tissue fragment which is wrapped in paper cassette in toto in one cassette, one piece, multiple levels on one slide. D. Esophagus, mid biopsy: Labeled mid esophagus biopsy . Received in formalin are two irregular pink-white mucosal tissue fragments, each measuring approximately 0.2 cm in greatest dimension, which are wrapped in paper and submitted in toto in one cassette, two pieces, multiple levels on one slide. JUANA 10/27/2024 11:[address] [facility] Disclaimer Unless otherwise specified, all tissue is 10% NB formalin fixed and paraffin embedded. 10/27/2024 11:[address] [facility] Tissue Esophageal structure / Unknown 10/26/2024 10/26/2024 4:01 PM EST Tissue specimen (specimen) Transverse colon structure / Unknown 10/26/2024 10/26/2024 4:01 PM EST Tissue specimen (specimen) Esophageal structure / Unknown 10/26/2024 10/26/2024 4:01 PM EST Tissue specimen (specimen) Esophageal structure / Unknown 10/26/2024 10/26/2024 4:01 PM EST us Alexandre Sharma MD LAB PATHOLOGY ORDERABLES Fi nal Result [facility] [address] [place] [address], documented in this encounter Visit Diagnoses Diagnosis Personal history of colon polyps, unspecified Gastro-esophageal reflux disease without esophagitis documented in this encounter Care Teams Volunteer Firefighter Relationship Specialty Start Date End Date Rodger Starr NP [address] [place], [place] PCP - General Family Medicine 07/05/24 documented as of this encounter
--- OUTSIDE RECORDS SUMMARY | 2024-12-21 10:08 | XMS_ITS | Encounter Summary ---
Author Organization [facility] Address [address] [place] [address] Care Team Providers Care Bus And Trolley Inspecting Dispatcher Name Role Phone Rodger Starr NP Primary Care Provider Encounter Details Date Type Department Care Team (Latest Contact Info) Description 07/22/[address] [facility] - Main Lab [address] [place] [address] Annamarie Boggs MD [address] [phone] Encounter for gynecological examination (general) (routine) without abnormal findings Social History Tobacco Use Types Packs/Day Years [...] Procedure Name Priority Date/Time Associated Diagnosis Comments PAP SMEAR Routine 07/21/2024 12:00 AM EST Encounter for gynecological examination (general) (routine) without abnormal findings documented in this encounter Results * Pap smear (07/21/2024 12:00 AM EST) Interpretation Negative for intraepithelial lesion or malignancy 07/26/2024 4:32 PM EST [facility] General Categorization Negative 07/26/2024 4:32 PM EST [facility] Other Findings Atrophy 07/26/2024 4:32 PM [facility] Specimen Adequacy Satisfactory for evaluation 07/26/2024 4:32 PM [facility] Pap Methodology Liquid Based Pap Test 07/26/2024 4:32 PM [facility] Disclaimer The Pap test is a screening test which carries an inherent false negative rate. These test results should be correlated with the patient's clinical findings and history. This Pap test was processed using an automated screening system. Technical cytopathology services provided by [facility], at [address] [place] [id number] (CLIA # [id number]/Praneeth Mckeon MD, New Car Sales Manager.) 07/26/2024 4:32 PM [facility] Console Pap Interpretation Reported 07/26/2024 4:32 PM [facility] Brushing/Spatula Cervix uteri structure / Unknown 07/21/2024 07/22/2024 8:48 AM EST us Annamarie Boggs MD LAB CYTOLOGY ORDERABLES Final Result [facility] [address] [place] [address], documented in this encounter Visit Diagnoses Diagnosis Encounter for gynecological examination (general) (routine) without abnormal findings documented in this encounter Care Teams Bus And Trolley Inspecting Dispatcher Relationship Specialty Start Date End Date Rodger Starr NP [address] [place], [place] PCP - General Family Medicine 07/05/24 documented as of this encounter
--- OUTSIDE RECORDS SUMMARY | 2024-12-21 10:08 | XMS_ITS | Clinical Summary ---
Author Organization [facility] 299 [facility] Address [address] [place] [address] Phone Care Team Providers Care Fish Flipper Name Role Phone Reynold Starr NP Primary Care Provider [phone] Allergies Active Allergy Reactions Criticality Noted Date Comments Amoxicillin 08/04/2013 Aspirin 08/04/2013 Metformin Rash 09/30/2024 Penicillin G 08/04/2013 Sulfa (Sulfonamide Antibiotics) Shortness of breath High 09/30/2024 hives, face turns red Medications albuterol HFA (PROAIR HFA ; PROVENTIL HFA ; VENTOLIN HFA) 90 mcg/actuation inhaler Inhale 2 Puffs into the lungs every 4 hours as needed for Cough, Wheezing or Shortness of Breath. 4 Active budesonide (PULMICORT) 0.5 mg/2 mL nebulizer solution 3 Active busPIRone (BUSPAR) 7.5 mg tablet TAKE 1 TABLET BY MOUTH TWICE A DAY 5 Active ketoconazole (NIZORAL) 2 % shampoo Apply to scalp daily as direted 5 Active omeprazole (PriLOSEC) [address] capsule Take 20 mg by mouth daily. Active fluticasone propionate (FLOVENT DISKUS) 50 mcg/actuation diskus inhaler Inhale 1 puff by mouth 2 (two) times a day. Rinse mouth with water after use to reduce aftertaste and incidence of candidiasis. Do not swallow. Active levothyroxine (SYNTHROID, LEVOTHROID) 112 mcg tablet Take 1 tablet (112 mcg total) by mouth 1 (one) time each day. Active atenoloL (TENORMIN) 25 mg tablet Take by mouth 1 (one) time each day. Active amLODIPine (NORVASC) 10 mg tablet Take by mouth 1 (one) time each day. Active clonazePAM (KlonoPIN) 0.5 mg tablet Take 0.5 tablets (0.25 mg total) by mouth 2 (two) times a day. Max Daily Amount: 0.5 mg Active atorvastatin (LIPITOR) 20 mg tablet Take 1 tablet (20 mg total) by mouth at bedtime. Active SITagliptin phosphate (JANUVIA) 100 mg tablet Take 1 tablet (100 mg total) by mouth 1 (one) time each day. Active docusate sodium (COLACE) 100 mg capsule Take 1 capsule (100 mg total) by mouth 2 (two) times a day. Active cetirizine (ZyrTEC) 10 mg tablet Take 1 tablet (10 mg total) by mouth 1 (one) time each day. Active sod picosulf-mag ox-citric ac (Clenpiq) 10 mg-3.5 gram- 12 gram/175 mL solutionIndicat ions:Personal history of colon polyps, unspecified,REGIS D (gastroesophage al reflux disease),Epigas tric pain Take 175 mL by mouth 2 (two) times a day. 350 mL Active Active Problems Problem Noted Date Diagnosed Date T2DM (type 2 diabetes mellitus) (CMS/[facility] V24, CM S/HCC V28) 09/30/2024 Hypertension 09/30/2024 Hypothyroidism 09/30/2024 Polyp of female genital tract 09/30/2024 Colon polyps 09/30/2024 IBS (irritable bowel syndrome) 05/10/2014 Anxiety disorder 08/04/2013 Asthma 08/04/2013 Heartburn 08/04/2013 Encounters Date Type Department Care Team Description 10/27/2024 Telephone Gastroenterology - 299 [address] [facility] [address] [place] [address] Eva Callaway [place] Results 10/26/2024 Lab Requisition [facility] - Main Lab [address] [facility] [address] Alexandre Sharma MD Personal history of colon polyps, unspecified; Gastro-esophageal reflux disease without esophagitis 09/30/2024 8:40 AM EST Office Visit Gastroenterology - [address] [place] [address] Shelley Vazquez PA Colon cancer screening (Primary Dx); Gastroesophageal reflux disease, unspecified whether esophagitis present 09/30/2024 Telephone Gastroenterology - [address] [address] Alexandre Sharma MD [facility] from Last 3 Months Immunizations Name Administration Dates Next Due Influenza trivalent, with pr eservative (Fluzone; Afluria) 6mo and older 05/09/2015 Pneumococcal polysaccharide 23 valent (Pneumovax 23) 2yo and older 05/10/2014 Tdap Tetanus diptheria acell ular pertussis (Boostrix; Adacel) 7yo and older 05/10/2014 Surgical History Surgery Date Site/Laterality Comments OTHER SURGICAL HISTORY PROCEDURE: [place] NASAL/SINUS NDSC SURG W/BX POLYPC/DBRDMT SPX; COMMENT: [address] Sood TUBAL LIGATION PROCEDURE: HISTORICAL TUBAL LIGATION TOTAL THYROIDECTOMY 04/27/2024 COLONOSCOPY 04/30/2021 recall 3 yrs TAx6 COLONOSCOPY 01/01/2016 TAx1 ESOPHAGOGASTRODUODENOSCOPY 04/30/2021 Family History Medical History Relation Name Comments Colon polyps Brother Colon cancer Neg Hx Relation Name Status Comments Brother Father stroke, dm, hea rt problems Mother Alive breast cancer Social History Tobacco Use Types Packs/Day Years Used Date Smoking Tobacco: Never Alcohol Use Standard Drinks/Week Comments Yes 0 (1 standard drink = 0.6 oz pur e alcohol) Comments Unknown Sex and Gender Information Value Date Recorded Sex Assigned at Not on file Legal Sex Female 1:49 AM EST Gender Identity Not on file Sexual Orientation Not on file Obstetrics History Last Filed Vital Signs Vital Sign Reading Time Taken Comments Blood Pressure - - Pulse - - Temperature - - Respiratory Rate - - Oxygen Saturation - - Inhaled Oxygen Concentration - - Weight 73 kg (161 lb) 09/30/2024 8:34 AM EST Height 152.4 cm (5') 09/30/2024 8:34 AM EST Body Mass Index 31.44 09/30/2024 8:34 AM EST Plan of Treatment Health Maintenance Due Date Last Done Comments Diabetes: Annual Foot Exam 1975 Diabetes: Annual Retina Eye Exam 1975 Hepatitis B Vaccines (1 of 3 - 19+ 3-dose series) 1984 Zoster Vaccines (1 of 2) 2015 Diabetes: Annual GFR (Glomerular Filtration Rate) 03/15/2016 03/15/2015 Cholesterol Screening (Lipid Panel) 08/04/2022 01/03/2014 Depression Screening 08/04/2022 HIV Screening 08/04/2022 Social Influencers of Health Screening 08/04/2022 Diabetes: Annual Urine Albumin-Creatinine Ratio (uACR) 09/30/2024 Diabetes: Blood Sugar Control Test (HGBA1C) 09/30/2024 Hypertension/CHF/CAD Annual BMP Blood Test 09/30/2024 03/15/2015 Breast Cancer Screening 09/08/2025 09/08/19 24, 09/04/2022, 08/06/2021, Additional history exists Cervical Cancer Screening: Pap Smear 07/21/2027 07/21/2024, 04/14/2015 DTaP,Tdap,and Td Vaccines (4 - Td or Tdap) 09/18/2027 09/18/2017, 05/10/2014, 06/18/2001 Colorectal Cancer Screening: Colonoscopy 10/26/2034 10/26/2024, 01/01/2016 RSV Immunization Adult Patients (1 - 1-dose 75+ series) 2040 Hepatitis C Screening Completed 10/28/2011 COVID-19 Vaccine Completed 06/03/2024, 03/2023, 06/20/2022, Additional history exists Influenza Vaccine Completed 06/03/2024, , 2022, Additional history exists Pneumococcal Vaccine: 50+ Years Completed 08/10/2024, 05/04/2020, 05/10/2014, Additional history exists Pneumococcal Vaccine: Pediatrics (0 to 5 Years) and At-Risk Patients (6 to 64 Years) Completed 08/10/2024, 05/04/2020, 05/10/2014, Additional history exists HIB Vaccines Aged Out No longer eligi ble based on patient's age to complete this topic HPV Vaccines Aged Out No longer eligi ble based on patient's age to complete this topic Hepatitis A Vaccines Aged Out No long er eligible based on patient's age to complete this topic IPV Vaccines Aged Out No longer eligi ble based on patient's age to complete this topic MMR Vaccines Aged Out No longer eligi ble based on patient's age to complete this topic Meningococcal ACWY Vaccine Aged Out N o longer eligible based on patient's age to complete this topic Meningococcal B Vaccine Aged Out No l onger eligible based on patient's age to complete this topic RSV Immunization Patients Under 20 months Aged Out No longer eligible based on patient's age to complete this topic Varicella Vaccines Aged Out No longer eligible based on patient's age to complete this topic Procedures Procedure Name Priority Date/Time Associated Diagnosis Comments EXTERNAL ENDOSCOPY REPORT Routine 10/26/2024 11:56 AM EST EXTERNAL COLONOSCOPY REPORT Routine 10/26/2024 11:55 AM EST TISSUE EXAM Routine 10/26/2024 Personal history of colon polyps, unspecified Gastro-esophageal reflux disease without esophagitis PAP SMEAR Routine 07/21/2024 12:00 AM EST Encounter for gynecological examination (general) (routine) without abnormal findings MALLORY SCREENING DIGITAL Routine 09/08/2023 9:09 AM EST Encounter for screening mammogram for malignant neoplasm of breast ANNUAL BMP BLOOD TEST Routine 03/15/2015 LIPID PANEL Routine 01/03/2014 HEPATITIS C SCREENING Routine 10/28/2011 from Last 3 Months or Most Recently Relevant to Health Maintenance Results * External Endoscopy (10/26/2024 11:56 AM EST) Anatomical Region Laterality Modality Endoscopy us Historical Provider GI~PROCEDURE ORDERABLES F inal Result * External Colonoscopy Report (10/26/2024 11:55 AM EST) Anatomical Region Laterality Modality Endoscopy us Historical Provider GI~PROCEDURE ORDERABLES F inal Result * Tissue Exam (10/26/2024) Final Diagnosis A. Large Intestine, Cecum, polyp biopsy: - Tubular adenoma. B. Large Intestine, Transverse Colon, polyp: - Tubular adenoma. C. Esophagus, distal biopsy: - Focal Leonard's mucosa. - Negative for dysplasia. D. Esophagus, mid biopsy: - Esophageal squamous mucosa with no specific pathologic changes. - Negative for intraepithelial eosinophils. 10/27/2024 11:33 AM [facility] Clinical Information Personal history of colonic polyps Heartburn, gastro-esophageal reflux disease R/O Leonard's 10/27/2024 11:33 AM [facility] Gross Description A. Large Intestine, Cecum, [...] on one slide. JUANA 10/27/2024 11:33 AM [facility] Disclaimer Unless otherwise specified, all tissue is 10% NB formalin fixed and paraffin embedded. 10/27/2024 11:33 AM [facility] Tissue Esophageal structure / Unknown 10/26/2024 10/26/2024 4:01 PM EST Tissue specimen (specimen) Transverse colon structure / Unknown 10/26/2024 10/26/2024 4:01 PM EST Tissue specimen (specimen) Esophageal structure / Unknown 10/26/2024 10/26/2024 4:01 PM EST Tissue specimen (specimen) Esophageal structure / Unknown 10/26/2024 10/26/2024 4:01 PM EST us Alexandre Sharma MD LAB PATHOLOGY ORDERABLES Fi nal Result [facility] [address] [place] [address], * Pap smear (07/21/2024 12:00 AM EST) Interpretation Negative for intraepithelial lesion or malignancy 07/26/2024 4:32 PM EST [facility] General Categorization Negative 07/26/2024 4:32 PM EST [facility] Other Findings Atrophy 07/26/2024 4:32 PM [facility] Specimen Adequacy Satisfactory for evaluation 07/26/2024 4:32 PM [facility] Pap Methodology Liquid Based Pap Test 07/26/2024 4:32 PM [facility] Disclaimer The Pap test is a screening test which carries an inherent false negative rate. These test results should be correlated with the patient's clinical findings and history. This Pap test was processed using an automated screening system. Technical cytopathology services provided by [facility], at [address] [place] [address] (IA # [id number]/Praneeth Mckeon MD, Radio Performer.) 07/26/2024 4:32 PM [facility] Console Pap Interpretation Reported 07/26/2024 4:32 PM [facility] Brushing/Spatula Cervix uteri structure / Unknown 07/21/2024 07/22/2024 8:48 AM EST Jass Boggs MD LAB CYTOLOGY ORDERABLES Final Result [facility] [address] [place] [address], * MALLORY SCREENING DIGITAL (09/08/2023 9:09 AM EST) Anatomical Region Laterality Modality Mammography 09/04/2023 8:21 AM EST Narrative 09/08/2023 9:09 AM EST [facility] Diagnostic Imaging Department [address] [place] [address] Patient: ??VINOD THOMPSON ?/Age/Sex: 1965 - 58 - F Unit#: ??[id number] ? Location/Status: ??SPDIMAM/REG CLI ? Mnemonic/Ordering Site: ??DIGSC/SPMAIN Ordering Physician: ??JASS LOPEZ MD [facility] Screening Digital - 09/06/23 - Report Status:Signed EXAM: [facility] Screening Digital EXAM DATE AND TIME: 09/06/2023 7:56 AM HISTORY: ??Annual screening COMPARISON: TECHNIQUE: Bilateral digital breast tomosynthesis was performed in the CC and MLO projections. Computer aided detection with [employer] 3D 3.1 was employed. TISSUE DENSITY: b. There are scattered areas of fibroglandular density. FINDINGS: No suspicious masses, grouped microcalcifications, or areas of architectural distortion are seen. The skin and vascularity are unremarkable. IMPRESSION: Stable mammographic appearance of the breasts. ??No evidence of malignancy is seen. A negative mammogram in the presence of a clinically suspicious palpable abnormality does not preclude the possibility of malignancy or alter the indications for biopsy. BI-RADS: ??Category 1: Negative RECOMMENDATION(S): 1: Routine screening mammogram BILATERAL in 1 year. 3341F, 7025F Dictating Physician: ??REYNOLD ROJAS MD Electronically Signed by: ??REYNOLD ROJAS MD Dic Date/Time: ??09/08/23 0859 Sign date/Time: ??09/08/23 0909 Procedure Note Reynold Rojas MD - 04/19/2024 [facility] Diagnostic Imaging Department [address] [place], [place] [id number] Patient: VINOD THOMPSON /Age/Sex: 1965 - 58 - F Unit#: [id number] Location/Status: [facility] CLI Mnemonic/Ordering Site: [facility] Ordering Physician: JASS LOPEZ MD [facility] Screening Digital - 09/06/23 - Report Status:Signed EXAM: [facility] Screening Digital EXAM DATE AND TIME: 09/06/2023 7:56 AM HISTORY: Annual screening COMPARISON: TECHNIQUE: Bilateral digital breast tomosynthesis was performed in the CCand MLO projections. Computer aided detection with [employer] 3D 3.1was employed. TISSUE DENSITY: b. There are scattered areas of fibroglandular density. FINDINGS: No suspicious masses, grouped microcalcifications, or areas ofarchitectural distortion are seen. The skin and vascularity are unremarkable. IMPRESSION: Stable mammographic appearance of the breasts. No evidence of malignancyis seen. A negative mammogram in the presence of a clinically suspicious palpable abnormality does not preclude the possibility of malignancy or alter the indications for biopsy. BI-RADS: Category 1: Negative RECOMMENDATION(S): 1: Routine screening mammogram BILATERAL in 1 year. 3341F, 7064F Dictating Physician: REYNOLD ROJAS MD Electronically Signed by: REYNOLD ROJAS MD Dic Date/Time: 09/08/23 0859 Sign date/Time: 09/08/23 0909 Result [facility] Jass Boggs MD IMG BI PROCEDURES Final Result * Annual BMP Blood Test (03/15/2015) Pathologist [facility] Annual BMP Blood Test Abstracted Result [facility] Provider HEALTH MAINTENANCE Final Result * (ABNORMAL) Lipid panel (01/03/2014) [facility] LDL/HDL Ratio 5(A) 0 - 4 Triglycerides 253(A) 0 - 150 mg/dL Cholesterol 197 0 - 200 mg/dL HDL 41 >=40 mg/dL LDL Cholesterol 106(A) 0 - 100 mg/dL Blood Venous blood specimen / Unknown Result [facility] Historical Provider LAB BLOOD ORDERABLES Jennifer l Result * Hepatitis C Screening (10/28/2011) [facility] Hepatitis C Screening Abstracted Result [facility] Historical Provider HEALTH MAINTENANCE Final Result from Last 3 Months or Most Recently Relevant to Health Maintenance Insurance [facility] Care Teams Fish Flipper Relationship Specialty Start Date End Date Reynold Starr NP [address] [place], [place] PCP - General Family Medicine 07/05/24
--- OUTSIDE RECORDS SUMMARY | 2024-12-21 10:09 | XMS_ITS | Encounter Summary ---
Author Organization [facility] Address [address] [place] [address] Care Team Providers Care General Production Manager Name Role Phone Bethany Prasad MD Primary Care Provider Eddie Armas, Pcp Primary Care Provider Nay Chandler MD Primary Care Provider Jennifer oliver Encounter Details Date Type Department Care Team Description 08/09/2015 Punch Press Operator Helper Report Medical Records [address] [place] [address] Abstract, Provider Social History Tobacco Use Types Packs/Day Years Used Date Smoking Tobacco: Never Alcohol Use Standard Drinks/Week Comments Yes 0 (1 standard drink = 0.6 oz pur e alcohol) Sex Assigned at Date Recorded Not on file documented as of this encounter Plan of Treatment Not on file documented as of this encounter Visit Diagnoses Not on filedocumented in this encounter Care Teams General Production Manager Relationship Specialty Start Date End Date Bethany Prasad MD PCP - General Internal Medicine 05/11/13 11/19/15 [facility] Pcp PCP - General Internal Medicine 11/20/15 10/17/21 Nay Cabrales MD PCP - General Internal Medicine 10/18/21 documented as of this encounter
--- OUTSIDE RECORDS SUMMARY | 2024-12-21 10:09 | XMS_ITS | Encounter Summary ---
Author Organization [facility] Address [address] [place] [address] Care Team Providers Care Ceo & Co Founder Name Role Phone Community, Pcp Primary Care Provider Nay Chandler MD Primary Care Provider Jennifer oliver Encounter Details Date Type Department Care Team Description 12/14/2015 FLATBED COMPANY DRIVER/MassPat Report Medical Records [address] [place] [address] Abstract, Provider Social History Tobacco Use Types [...] on filedocumented in this encounter Care Teams Ceo & Co Founder Relationship Specialty Start Date End Date Community, Pcp PCP - General Internal Medicine 11/20/15 10/17/21 Nay Cabrales MD PCP - General Internal Medicine 10/18/21 documented as of this encounter
--- OUTSIDE RECORDS SUMMARY | 2024-12-21 10:09 | XMS_ITS | Encounter Summary ---
Author Organization [facility] Address [address] [place] [address] Care Team Providers Care Major General Name Role Phone Bethany Prasad MD Primary Care Provider Eddie Armas, Pcp Primary Care Provider Nay Chandler MD Primary Care Provider Jennifer oliver Encounter Details Date Type Department Care Team Description 07/18/2015 Controlled Substance Plan Medical Records [address] [place] [address] Abstract, Provider Social History Tobacco Use Types [...] on filedocumented in this encounter Care Teams Major General Relationship Specialty Start Date End Date Bethany Prasad MD PCP - General Internal Medicine 05/11/13 11/19/15 [facility], Pcp PCP - General Internal Medicine 11/20/15 10/17/21 Nay Cabrales MD PCP - General Internal Medicine 10/18/21 documented as of this encounter
--- OUTSIDE RECORDS SUMMARY | 2024-12-21 10:09 | XMS_ITS | Clinical Summary ---
Author Organization [facility] Address [address] [place] [address] Care Team Providers Care Thresher Broomcorn Name Role Phone Nay Cabrales MD Primary Care Provider Unavailab le Allergies Active Allergy Reactions Severity Noted Date Comments Amoxicillin 08/04/2013 Aspirin 08/04/2013 Penicillin G 08/04/2013 Medications Medication Sig Dispensed Refills Start Date End Date Status omeprazole (PRILOSEC) 20 MG capsule Take 20 mg by mouth daily. 0 Active budesonide (PULMICORT) 0.5 MG/2ML nebulizer solution daily. 0 07/19/2013 Active ALBUTEROL SULFATE 108 (90 BASE) MCG/ACT AERS Inhale 2 Puffs into the lungs every 4 hours as needed for Cough, Wheezing or Shortness of Breath. 1 Inhaler 3 01/05/2014 Active ketoconazole (NIZORAL) 2 % shampoo Apply to scalp daily as direted 1 Bottle 5 05/11/2015 Active busPIRone (BUSPAR) 7.5 MG tablet TAKE 1 TABLET BY MOUTH TWICE A DAY 60 Tab 5 07/03/2015 Active clonazepam (KLONOPIN) 0.5 MG tablet 0.25 - 0.5 mg nightly prn 28 tablet 0 10/30/2018 Active clonazepam (KLONOPIN) 0.5 MG tablet Take 0.5 Tabs by mouth 3 times daily as needed for Anxiety for up to 30 days. 40 Tab 2 08/13/2019 Active Active Problems Problem Noted Date IBS (irritable bowel syndrome) 4 Heartburn 08/04/2013 Asthma 08/04/2013 Anxiety disorder 08/04/2013 Immunizations Name Administration Dates Next Due Influenza (> 6 Months) 05/09/2015 Pneumoccoccal(Adult) Polysaccharide PPSV23 05/10 Tdap 05/10/2014 Family History Relation Name Status Comments Father stroke, dm, hea rt problems Mother Alive breast cancer Social History Tobacco Use Types Packs/Day Years Used Date Smoking Tobacco: Never Alcohol Use Standard Drinks/Week Comments Yes 0 (1 standard drink = 0.6 oz pur e alcohol) Sex Assigned at Date Recorded Not on file Last Filed Vital Signs Vital Sign Reading Time Taken Comments Blood Pressure 152/80 06/21/2015 8:13 AM EDT Pulse 70 06/09/2015 10:57 AM EDT Temperature 37.1 ??C (98.7 ??F) 05/09/2015 3:37 PM ED T Respiratory Rate 16 06/09/2015 10:57 AM EDT Oxygen Saturation - - Inhaled Oxygen Concentration - - Weight 73 kg (161 lb) 06/21/2015 8:13 AM EDT Height 154.9 cm (5' 1 ) 06/21/2015 8:13 AM EDT Body Mass Index 30.42 06/21/2015 8:13 AM EDT Plan of Treatment Health Maintenance Due Date Last Done Comments Covid-19 Vaccine (#1) 1965 TOBACCO CHECK/ADVISE 1983 COLON CANCER SCREENING 2015 SHINGLES VACCINE (1 of 2) 2015 BASELINE HEALTH EXAM 40-64 01/04/2016 01/03/2014, MAMMOGRAM 04/14/2016 04/14/2015, 05/2014 (External Completion of test per patient (Patient reports normal results)), 01/02/2013 (External Completion of test per patient (Patient reports normal results)) CERVICAL CANCER SCREENING 04/14/20182014, 02/07/2014 (External Completion of Vaccination per patient), 01/02/2013 (External Completion of test per patient (Patient reports normal results)) CHOLESTEROL SCREENING 01/03/2019 01/03/2014 DTAP/TDAP/TD (2 - Td or Tdap) 05/10/2024 05/10/2014 BMI CHECK/ADVISE 09/01/2024 08/04/2013 INFLUENZA (Season Ended) 2025 05/09/2015 PNEUMOCOCCAL VACCINE FOR HIGH RISK PATIENTS (#2) 2030 05/10/2014 HEPATITIS C SCREENING Addressed 10/28/2011 (External Completion) Overridden with the intention of not completing the topic Care Teams Thresher Broomcorn Relationship Specialty Start Date End Date Nay Cabrales MD PCP - General Internal Medicine 10/18/21
--- OUTSIDE RECORDS SUMMARY | 2024-12-21 10:09 | XMS_ITS | Encounter Summary ---
Author Organization [facility] Address [address] [place] [address] Care Team Providers Care Recreation Engineer Name Role Phone Bethany Prasad MD Primary Care Provider Eddie Armas, Pcp Primary Care Provider Nay Chandler MD Primary Care Provider Jennifer oliver Encounter Details Date Type Department Care Team Description 12/05/2014 SUPERVISOR FARM EQUIPMENT MAINTENANCE/MassPat Report Medical Records [address] [place] [address] Abstract, Provider Social History Tobacco Use Types [...] on filedocumented in this encounter Care Teams Recreation Engineer Relationship Specialty Start Date End Date Bethany Prasad MD PCP - General Internal Medicine 05/11/13 11/19/15 [facility], Pcp PCP - General Internal Medicine 11/20/15 10/17/21 Nay Cabrales MD PCP - General Internal Medicine 10/18/21 documented as of this encounter
== END 2024-12-21 10:17 | disposition home or self-care (01) ==
PROVIDERS: PCP Nurse Practitioner Family; Visit Provider Nurse Practitioner Family
DX: Z13.9 Encounter for screening, unspecified (principal); E11.9 Type 2 diabetes mellitus without complications

== ENCOUNTER → 2024-12-21 09:22 | Outpatient (BNVA) | payer OTHER, SELFPAY | PROVIDERS: PCP Nurse Practitioner Family; Visit Provider Nurse Practitioner Family | DX: E11.9 Type 2 diabetes mellitus without complications (principal) | CPT/HCPCS: 83036; 96127 ==

== ENCOUNTER 2024-12-30 07:20 | Outpatient (REF) | payer OTHER, SELFPAY ==
--- OUTSIDE RECORDS SUMMARY | 2024-12-30 07:21 | XMS_ITS | Encounter Summary ---
Author Organization [facility] Address [address] [place] [address] Care Team Providers Care Self Pay Representative Name Role Phone Bethany Prasad MD Primary Care Provider Eddie Armas, Pcp Primary Care Provider Nay Chandler MD Primary Care Provider Jennifer oliver Encounter Details Date Type Department Care Team Description 08/06/2013 Release of Information Medical Records [address] [place] [address] Abstract, Provider Social History Tobacco Use Types [...] on filedocumented in this encounter Care Teams Self Pay Representative Relationship Specialty Start Date End Date Bethany Prasad MD PCP - General Internal Medicine 05/11/13 11/19/15 [facility], Pcp PCP - General Internal Medicine 11/20/15 10/17/21 Nay Cabrales MD PCP - General Internal Medicine 10/18/21 documented as of this encounter
--- OUTSIDE RECORDS SUMMARY | 2024-12-30 07:21 | XMS_ITS | Encounter Summary ---
Author Organization [facility] Address [address] [place] [address] Care Team Providers Care Big Machine Consultant Name Role Phone Bethany Prasad MD Primary Care Provider Eddie Armas, Pcp Primary Care Provider Nay Chandler MD Primary Care Provider Jennifer oliver Encounter Details Date Type Department Care Team Description 08/09/2015 Vocational Case Manager Report Medical Records [address] [place] [address] Abstract, Provider Social History Tobacco Use Types [...] on filedocumented in this encounter Care Teams Big Machine Consultant Relationship Specialty Start Date End Date Bethany Prasad MD PCP - General Internal Medicine 05/11/13 11/19/15 [facility], Pcp PCP - General Internal Medicine 11/20/15 10/17/21 Nay Cabrales MD PCP - General Internal Medicine 10/18/21 documented as of this encounter
--- OUTSIDE RECORDS SUMMARY | 2024-12-30 07:21 | XMS_ITS | Encounter Summary ---
Author Organization [facility] Address [address] [place] [address] Care Team Providers Care Ct Technologist Name Role Phone Bethany Prasad MD Primary Care Provider Eddie Armas, Pcp Primary Care Provider Nay Chandler MD Primary Care Provider Jennifer oliver Encounter Details Date Type Department Care Team Description 11/23/2014 Controlled Substance Plan Medical Records [address] [place] [address] Abstract, Provider Social History Tobacco Use Types [...] on filedocumented in this encounter Care Teams Ct Technologist Relationship Specialty Start Date End Date Bethany Prasad MD PCP - General Internal Medicine 05/11/13 11/19/15 [facility], Pcp PCP - General Internal Medicine 11/20/15 10/17/21 Nay Cabrales MD PCP - General Internal Medicine 10/18/21 documented as of this encounter
--- OUTSIDE RECORDS SUMMARY | 2024-12-30 07:21 | XMS_ITS | Clinical Summary ---
Author Organization [facility] Address [address] [place] [address] Care Team Providers Care Report Specialist Name Role Phone Nay Cabrales MD Primary [...] of not completing the topic Care Teams Report Specialist Relationship Specialty Start Date End Date Nay Cabrales MD PCP - General Internal Medicine 10/18/21
--- OUTSIDE RECORDS SUMMARY | 2024-12-30 07:21 | XMS_ITS | Clinical Summary ---
Author Organization [facility] Address [address] [place] [address] Phone Care Team Providers Care Automotive Assembler Name Role Phone Reynold Starr NP Primary Care Provider [phone] Allergies Active Allergy Reactions Criticality Noted Date [...] Diagnosed Date T2DM (type 2 diabetes mellitus) (CMS/[facility] V24, CM S/HCC V28) 09/30/2024 Hypertension 09/30/2024 Hypothyroidism 09/30/2024 Polyp of female genital tract 09/30/2024 Colon polyps 09/30/2024 IBS (irritable bowel syndrome) 05/10/2014 Anxiety disorder 08/04/2013 Asthma 08/04/2013 Heartburn 08/04/2013 Encounters Date Type Department Care Team Description 10/27/2024 Telephone Gastroenterology - [address] [facility] [address] [place] [address] Eva Callaway [place] Results 10/26/2024 Lab Requisition [facility] - Main Lab [address] [facility] [place] [address] Alexandre Sharma MD Personal history of colon polyps, unspecified; Gastro-esophageal reflux disease without esophagitis from Last 3 Months Immunizations Name Administration Dates Next Due Influenza trivalent, with pr eservative (Fluzone; Afluria) 6mo and older 05/09/2015 Pneumococcal polysaccharide 23 valent (Pneumovax 23) 2yo and older 05/10/2014 Tdap Tetanus diptheria acell ular pertussis (Boostrix; Adacel) 7yo and older 05/10/2014 Surgical History Surgery Date Site/Laterality Comments OTHER SURGICAL HISTORY PROCEDURE: [place] NASAL/SINUS NDSC SURG W/BX POLYPC/DBRDMT SPX; COMMENT: [...] gynecological examination (general) (routine) without abnormal findings DAVID SCREENING DIGITAL Routine 09/08/2023 9:09 AM EST [...] Negative for intraepithelial eosinophils. 10/27/2024 11:33 AM EST [facility] Clinical Information Personal history of colonic polyps Heartburn, gastro-esophageal reflux disease R/O Leonard's 10/27/2024 11:33 AM [facility] Gross Description A. Large [...] on one slide. JUANA 10/27/2024 11:33 AM [facility] Disclaimer Unless otherwise specified, all tissue is 10% NB formalin fixed and paraffin embedded. 10/27/2024 11:33 AM [facility] Tissue Esophageal structure / Unknown 10/26/2024 10/26/2024 4:01 PM EST Tissue specimen (specimen) Transverse colon structure / Unknown 10/26/2024 10/26/2024 4:01 PM EST Tissue specimen (specimen) Esophageal structure / Unknown 10/26/2024 10/26/2024 4:01 PM EST Tissue specimen (specimen) Esophageal structure / Unknown 10/26/2024 10/26/2024 4:01 PM EST us Alexandre Sharma MD LAB PATHOLOGY ORDERABLES Fi nal Result [facility] [address] [place] [address], * Pap smear (07/21/2024 12:00 AM EST) Interpretation Negative for intraepithelial lesion or malignancy 07/26/2024 4:32 PM [facility] General Categorization Negative 07/26/2024 4:32 PM [facility] Other Findings Atrophy 07/26/2024 4:32 PM [facility] Specimen Adequacy Satisfactory for evaluation 07/26/2024 4:32 PM [facility] Pap Methodology Liquid Based Pap Test 07/26/2024 4:32 PM [facility] Disclaimer The Pap test is a screening test which carries an inherent false negative rate. These test results should be correlated with the patient's clinical findings and history. This Pap test was processed using an automated screening system. Technical cytopathology services provided by [facility], at [address] [place] [address] (CLIA # [id number]/Praneeth Mckeon MD, Optical Fabricator.) 07/26/2024 4:32 PM [facility] Console Pap Interpretation Reported 07/26/2024 4:32 PM [facility] Brushing/Spatula Cervix uteri structure / Unknown 07/21/2024 07/22/2024 8:48 AM EST us Jass Boggs MD LAB CYTOLOGY ORDERABLES Final Result [facility] [address] [place] [address], * DAVID SCREENING DIGITAL (09/08/2023 9:09 AM EST) Anatomical Region Laterality Modality Mammography 09/04/2023 8:21 AM EST Narrative 09/08/2023 9:09 AM [facility] Diagnostic Imaging Department [address] [place] [address] Patient: ??JAYDONVINOD ?/Age/Sex: 1965 - 58 - F Unit#: ??[id number] ? Location/Status: ??SPDIMAM/REG CLI ? Mnemonic/Ordering Site: ??DIGSC/SPMAIN Ordering Physician: ??JASS LOPEZ MD [facility] Screening Digital - 09/06/23 - Report Status:Signed EXAM: [facility] Screening Digital EXAM DATE AND TIME: 09/06/2023 7:56 AM HISTORY: ??Annual screening COMPARISON: TECHNIQUE: Bilateral digital breast tomosynthesis was performed in the CC and MLO projections. Computer aided detection with LeanKit 3D 3.1 was employed. TISSUE DENSITY: b. [...] screening mammogram BILATERAL in 1 year. 3341F, 7072F Dictating Physician: ??REYNOLD ROJAS MD Electronically Signed by: ??REYNOLD ROJAS MD Dic Date/Time: ??09/08/23 0859 Sign date/Time: ??09/08/23 0909 Procedure Note Reynold Rojas MD - 04/19/2024 [facility] Diagnostic Imaging Department [address] [place] [address] Patient: VINOD THOMPSON /Age/Sex: 1965 - 58 - F Unit#: [id number] Location/Status: [facility] CLI Mnemonic/Ordering Site: [facility] Ordering Physician: JASS LOPEZ MD [facility] Screening Digital - 09/06/23 - Report Status:Signed EXAM: [facility] Screening Digital EXAM DATE AND TIME: 09/06/2023 7:56 AM HISTORY: Annual screening COMPARISON: TECHNIQUE: Bilateral digital breast tomosynthesis was performed in the CCand MLO projections. Computer aided detection with iCAD [employer] AI 3D 3.1was employed. TISSUE DENSITY: b. There [...] screening mammogram BILATERAL in 1 year. 3341F, 7050F Dictating Physician: REYNOLD ROJAS MD Electronically Signed by: REYNOLD ROJAS MD Dic Date/Time: 09/08/23858 Sign date/Time: 09/08/23 0909 Result [facility] Jass Boggs MD IMG BI PROCEDURES Final Result * Annual BMP Blood Test (03/15/2015) Annual BMP Blood Test Abstracted Historical Provider HEALTH MAINTENANCE Final Result * (ABNORMAL) Lipid panel (01/03/2014) LDL/HDL Ratio 5(A) 0 - 4 Triglycerides 253(A) 0 - 150 mg/dL Cholesterol 197 0 - 200 mg/dL HDL 41 >=40 mg/dL LDL Cholesterol 106(A) 0 - 100 mg/dL Blood Venous blood specimen / Unknown Result [facility] Historical Provider LAB BLOOD ORDERABLES Jennifer l Result * Hepatitis C Screening (10/28/2011) Hepatitis C Screening Abstracted Historical Provider HEALTH MAINTENANCE Final Result from Last 3 Months or Most Recently Relevant to Health Maintenance Insurance [facility] Care Teams Automotive Assembler Relationship Specialty Start Date End Date Reynold Starr NP [address] [place] [address], [place] PCP - General Family Medicine 07/05/24
--- OUTSIDE RECORDS SUMMARY | 2024-12-30 07:21 | XMS_ITS | Encounter Summary ---
Author Organization [facility] Address [address] [place] [address] Care Team Providers Care Monorail Helper Name Role Phone Rodger Starr NP Primary Care Provider Encounter Details Date Type Department Care Team (Latest Contact Info) Description 07/22/[address] [facility] - Main Lab [address] [place] [address] Annamarie Boggs MD [address] [id number] Encounter for gynecological examination (general) (routine) without [...] lesion or malignancy 07/26/2024 4:32 PM EST [facility] General Categorization Negative 07/26/2024 4:32 PM EST [facility] Other Findings Atrophy 07/26/2024 4:32 PM [facility] Specimen Adequacy Satisfactory for evaluation 07/26/2024 4:32 PM [facility] Pap Methodology Liquid Based Pap Test 07/26/2024 4:32 PM [facility] Disclaimer The Pap test is a screening test which carries an inherent false negative rate. These test results should be correlated with the patient's clinical findings and history. This Pap test was processed using an automated screening system. Technical cytopathology services provided by [facility], at [address] [place] [address] (CLIA # [id number]/Praneeth Mckeon MD, Senior Scheduler.) 07/26/2024 4:32 PM [facility] Console Pap Interpretation Reported 07/26/2024 4:32 PM [facility] Brushing/Spatula Cervix uteri structure / Unknown 07/21/2024 07/22/2024 8:48 AM EST us Annamarie Boggs MD LAB CYTOLOGY ORDERABLES Final Result [facility] [address] [place] [address], documented in this encounter Visit Diagnoses Diagnosis Encounter for gynecological examination (general) (routine) without abnormal findings documented in this encounter Care Teams Monorail Helper Relationship Specialty Start Date End Date Rodger Starr NP [address] [place], [place] PCP - General Family Medicine 07/05/24 documented as of this encounter
--- OUTSIDE RECORDS SUMMARY | 2024-12-30 07:21 | XMS_ITS | Encounter Summary ---
Author Organization [facility] Address [address] [place] [address] Care Team Providers Care Medical Center Director Name Role Phone Community, Pcp Primary Care Provider Nay Chandler MD Primary Care Provider Jennifer oliver Encounter Details Date Type Department Care Team Description 12/14/2015 LIBERAL ARTS TEACHER/MassPat Report Medical Records [address] [place] [address] Abstract, Provider Social History Tobacco Use Types [...] on filedocumented in this encounter Care Teams Medical Center Director Relationship Specialty Start Date End Date Community, Pcp PCP - General Internal Medicine 11/20/15 10/17/21 Nay Cabrales MD PCP - General Internal Medicine 10/18/21 documented as of this encounter
--- OUTSIDE RECORDS SUMMARY | 2024-12-30 07:21 | XMS_ITS | Encounter Summary ---
Author Organization [facility] Address [address] [place] [address] Care Team Providers Care Import/Export Clerk Name Role Phone Bethany Prasad MD Primary Care Provider Eddie Armas, Pcp Primary Care Provider Nay Chandler MD Primary Care Provider Jennifer oliver Encounter Details Date Type Department Care Team Description 12/05/2014 INSULATION WORKER/MassPat Report Medical Records [address] [place] [address] Abstract, Provider Social History Tobacco Use Types [...] on filedocumented in this encounter Care Teams Import/Export Clerk Relationship Specialty Start Date End Date Bethany Prasad MD PCP - General Internal Medicine 05/11/13 11/19/15 [facility], Pcp PCP - General Internal Medicine 11/20/15 10/17/21 Nay Cabrales MD PCP - General Internal Medicine 10/18/21 documented as of this encounter
--- OUTSIDE RECORDS SUMMARY | 2024-12-30 07:21 | XMS_ITS | Encounter Summary ---
Author Organization [facility] Address [address] [place] [address] Care Team Providers Care Intranet Specialist Name Role Phone Community, Pcp Primary Care Provider Nay Chandler MD Primary Care Provider Jennifer oliver Encounter Details Date Type Department Care Team Description 06/17/2019 Release of Information Medical Records [address] [place] [address] Abstract, Provider Social History Tobacco Use Types [...] on filedocumented in this encounter Care Teams Intranet Specialist Relationship Specialty Start Date End Date Chanda, Pcp PCP - General Internal Medicine 11/20/15 10/17/21 Nay Cabrales MD PCP - General Internal Medicine 10/18/21 documented as of this encounter
--- OUTSIDE RECORDS SUMMARY | 2024-12-30 07:21 | XMS_ITS | Encounter Summary ---
Author Organization [facility] Address [address] [place] [address] Care Team Providers Care Mold Setter Name Role Phone Rodger Starr NP Primary Care Provider Encounter Details Date Type Department Care Team ([facility] st Contact Info) Description 10/26/2024 Lab Requisition [facility] - Main Lab [address] [facility] [place] [address] Alexandre Sharma MD [address] [facility] [address] [place] [address] Personal history of colon polyps, unspecified; Gastro-esophageal [...] Negative for intraepithelial eosinophils. 10/27/2024 11:33 AM [facility] Clinical Information Personal history of colonic polyps Heartburn, gastro-esophageal reflux disease R/O Leonard's 10/27/2024 11:33 AM [facility] Gross Description A. Large Intestine, [...] on one slide. JUANA 10/27/2024 11:33 AM [facility] Disclaimer Unless otherwise specified, all tissue is 10% NB formalin fixed and paraffin embedded. 10/27/2024 11:33 AM [facility] Tissue Esophageal structure / Unknown 10/26/2024 10/26/2024 4:01 PM EST Tissue specimen (specimen) Transverse colon structure / Unknown 10/26/2024 10/26/2024 4:01 PM EST Tissue specimen (specimen) Esophageal structure / Unknown 10/26/2024 10/26/2024 4:01 PM EST Tissue specimen (specimen) Esophageal structure / Unknown 10/26/2024 10/26/2024 4:01 PM EST us Alexandre Sharma MD LAB PATHOLOGY ORDERABLES Fi nal Result [facility] [address] [place] [address], documented in this encounter Visit Diagnoses Diagnosis Personal history of colon polyps, unspecified Gastro-esophageal reflux disease without esophagitis documented in this encounter Care Teams Mold Setter Relationship Specialty Start Date End Date Rodger Starr NP [address] [place], [place] PCP - General Family Medicine 07/05/24 documented as of this encounter
[2024-12-30 10:08] LABS: MANUAL DIFF FLAG NO
[2024-12-30 10:18] LABS: Basophils Absolute Auto 0.1 X10*3/uL (0.0-0.2); Basophils Percent Auto 1.5 % (0-2); Eosinophils Absolute Auto 0.5 X10*3/uL (0.0-0.4); Eosinophils Percent Auto 5.9 % (0-4); Hematocrit 39.1 % (37.0-47.0); Hemoglobin 12.7 g/dl (12.0-16.0); Imm Gran Abs Auto 0.03 X10*3/uL (0.00-0.03); Imm Gran Pct Auto 0.3 % (0.0-0.4); Lymphocytes Absolute Auto 3.1 X10*3/uL (1.2-4.9); Lymphocytes Percent Auto 34.9 % (20-40); Mean Corpuscular HGB Conc 32.5 g/dl (31.0-35.0); Mean Corpuscular Hemoglobin 28.3 pg (27.0-33.0); Mean Corpuscular Volume 87.1 fL (80.0-98.0); Mean Platelet Volume 9.7 fL (9.4-12.3); Monocytes Absolute Auto 0.6 X10*3/uL (0.1-1.2); Monocytes Percent Auto 7.1 % (2-11); Neutrophils Absolute Auto 4.5 x10*3/uL (2.0-8.3); Neutrophils Percent Auto 50.3 % (45-73); Platelet Count 391 X10*3/uL (160-400); Red Blood Count 4.49 X10*6/uL (4.20-5.50); Red Cell Distribution Width 13.7 % (11.0-16.0); White Blood Count 8.9 X10*3/uL (4.8-10.8)
[2024-12-30 10:51] LABS: Alanine Aminotransferase 51 U/L (0-31); Albumin Level 4.3 g/dL (3.5-5.0); Alkaline Phosphatase 91 U/L (39-117); Anion Gap 13 (12-20); Aspartate Amino Transferase 33 U/L (5-31); Bilirubin Total 0.4 mg/dL (0.0-1.0); Blood Urea Nitrogen 17 mg/dL (9-16); Calcium 9.1 mg/dL (8.4-10.2); Carbon Dioxide 23 mmol/L (22-29); Chloride 107 mmol/L (96-108); Cholesterol 155 mg/dL (<200); Estimated Glomerular Filt Rate > 60; Glucose Fasting 179 mg/dL (60-99); HDL Cholesterol 51 mg/dL (>40); LDL Cholesterol Calculated 72 mg/dL (<100); Potassium 4.1 mmol/L (3.3-5.1); Sodium 139 mmol/L (135-145); Total Protein 7.2 g/dL (6.5-8.0); Triglycerides 162 mg/dL (<150); Vitamin D 25-OH Total 32.2 ng/mL (>30)
== END 2024-12-30 07:21 | disposition home or self-care (01) ==
LOC: HO.HMGCLDS 07:20
PROVIDERS: PCP Nurse Practitioner Family; Visit Provider Nurse Practitioner Family
DX: E11.9 Type 2 diabetes mellitus without complications (principal)
CPT/HCPCS: 36415; 80053; 80061; 82306; 84443; 85025

== ENCOUNTER 2025-01-01 10:30 | Outpatient (REF) | payer OTHER, SELFPAY ==
[2025-01-01 14:07] LABS: Appearance Urine Clear; Color Urine Yellow; Glucose Urine UA >=1000 mg/dL (Negative); Leukocyte Esterase Urine Negative (Negative); Nitrite Urine Negative (Negative); PH 5.5 (5.0-9.0); Specific Gravity - Urine 1.015 (1.005-1.025); UMIC TRIGGER UACC YES; Urine Blood Negative (Negative); Urine Ketones Negative (Negative); Urine Protein Negative (Neg-Trace)
[2025-01-01 14:15] LABS: Bacteria Urine None Seen (None Seen); Hyaline Casts Urine 0-2 /LPF (0-2); RBC Urine 0-2 /HPF (0-2); Squamous Epithelial Cell Urine 0-2 /HPF (0-2); WBC Urine 0-5 /HPF (0-5)
== END 2025-01-01 10:31 | disposition home or self-care (01) ==
LOC: HO.HMGCLNP 10:30
PROVIDERS: PCP Nurse Practitioner Family; Visit Provider Nurse Practitioner Family
DX: E11.9 Type 2 diabetes mellitus without complications (principal)
CPT/HCPCS: 81001; 81003

== ENCOUNTER 2025-01-27 09:43 | Outpatient (REF) | payer OTHER, SELFPAY ==
--- NOTE | ~2025-01-27 | US_ITS ---
CLINICAL HISTORY: R74.8 - Abnormal levels of other serum enzymes US abdomen complete with color Doppler Comparison: None Findings: The visualized pancreas, aorta, and inferior vena cava are unremarkable. Liver normal size and diffusely echogenic. Right lobe 16.0 cm length. Focal fatty sparing near the gallbladder fossa. Common duct 3.5 mm diameter. Physiologic distention of the gallbladder. No gallstones or sludge. No gallbladder wall thickening. No pericholecystic fluid. No sonographic Mccray sign. Main portal vein antegrade. Right kidney normal size, 10.7 cm in length. Normal cortical width and echotexture. No solid or cystic renal masses. Left kidney normal, 11.7 cm in length. Normal cortical width and echotexture. No solid renal masses. No nephrolithiasis. Caliectasis is present. Incidental parapelvic cysts lower pole measuring 1.4 x 1.2 x 1.3 cm and 1.5 x 0.9 x 1.3 cm. Spleen measures 10.0 cm. No splenic masses. No ascites. No lymphadenopathy. Impression: 1. Normal-sized liver diffusely echogenic reflecting mild diffuse hepatic steatosis or diffuse hepatocellular disease with areas of focal fatty sparing. 2. Incidental parapelvic cysts left kidney and mild pelviectasis on the left. This document has been electronically signed by: Rahul Rajan MD on 01/27/2025 15:26:29
--- OUTSIDE RECORDS SUMMARY | 2025-01-27 10:02 | XMS_ITS | Encounter Summary ---
Author Organization [facility] Address [address] [place] [address] Care Team Providers Care Machine Operator Name Role Phone Rodger Starr NP Primary Care Provider [phone] Encounter Details Date Type Department Care Team ([facility] st Contact Info) Description 10/26/2024 Lab Requisition [facility] - Main Lab [address] [facility] [place] [address] Alexandre Sharma MD [address] [place] [address] Personal history of colon polyps, unspecified; Gastro-esophageal [...] Negative for intraepithelial eosinophils. 10/27/2024 11:33 AM [facility] Clinical Information Personal history of colonic polyps Heartburn, gastro-esophageal reflux disease R/O Leonard's 10/27/2024 11:33 AM [facility] Gross Description A. Large Intestine, [...] on one slide. JUANA 10/27/2024 11:33 AM [facility] Disclaimer Unless otherwise specified, all tissue is 10% NB formalin fixed and paraffin embedded. 10/27/2024 11:33 AM [facility] Tissue Esophageal structure / Unknown 10/26/2024 10/26/2024 4:01 PM EST Tissue specimen (specimen) Transverse colon structure / Unknown 10/26/2024 10/26/2024 4:01 PM EST Tissue specimen (specimen) Esophageal structure / Unknown 10/26/2024 10/26/2024 4:01 PM EST Tissue specimen (specimen) Esophageal structure / Unknown 10/26/2024 10/26/2024 4:01 PM EST us Alexandre Sharma MD LAB PATHOLOGY ORDERABLES Fi nal Result [facility] [address] [place] [address], documented in this encounter Visit Diagnoses Diagnosis Personal history of colon polyps, unspecified Gastro-esophageal reflux disease without esophagitis documented in this encounter Care Teams Machine Operator Relationship Specialty Start Date End Date Rodger Starr NP [address], [place] PCP - General Family Medicine 07/05/24 documented as of this encounter
== END 2025-01-27 09:44 | disposition home or self-care (01) ==
LOC: HO.HMGCX 09:43
PROVIDERS: Absent Provider Internal Medicine Gastroenterology; PCP Nurse Practitioner Family; Visit Provider Nurse Practitioner Family
DX: R74.8 Abnormal levels of other serum enzymes (principal)
CPT/HCPCS: 76700

== ENCOUNTER → 2025-01-27 09:46 | Outpatient (BNV) | payer OTHER, SELFPAY | PROVIDERS: Absent Provider Internal Medicine Gastroenterology; PCP Nurse Practitioner Family; Visit Provider Radiology Diagnostic Radiology | DX: K76.0 Fatty (change of) liver, not elsewhere classified (principal) | CPT/HCPCS: 76700 ==

== ENCOUNTER 2025-01-29 09:11 | Outpatient (REF) | payer OTHER, SELFPAY | END 2025-01-29 09:12 | disposition home or self-care (01) | LOC: HO.HMGCLDS 09:11 | PROVIDERS: PCP Nurse Practitioner Family; Visit Provider Nurse Practitioner Family | DX: R74.8 Abnormal levels of other serum enzymes (principal) | CPT/HCPCS: 36415; 86704; 86706; 86709; 86803; 87340 ==

== ENCOUNTER 2025-06-24 07:06 | Outpatient (AMB) | payer OTHER, SELFPAY ==
--- NOTE | 2025-06-24 07:07 | MHC.OFFWIV ---
Intake Vital Signs 06/24/25 07:08 Height 5 ft Weight 163 lb BMI 31.8 BP 134/80 Blood Pressure Location Rt brachial Position Sitting Respiration 17 Pulse 99 Pulse Source Pulse Oximeter Temp 98.1 F Temp Source Oral Pulse Oximetry (%) 97 Oxygen Delivery Method Room Air Intake Visit Reasons: EP Sinus infection, loss of voice, chest cold Intake Note: Pt is here today c/o nasal congestion, coughing, sneezing and chest congestion x4days Patient Tobacco Use Status: Never used Tobacco Allergies aspirin Allergy (Intermediate, Verified 06/24/25 07:13) Difficulty Breathing Penicillins Allergy (Intermediate, Verified 06/24/25 07:13) Difficulty Breathing sulfate ion Allergy (Intermediate, Verified 06/24/25 07:13) Rash metformin Adverse Reaction (Uncoded 06/24/25 07:13) rash Medication List - Last Reconciled 06/24/25 by Madison Rodriguez MD albuterol sulfate 90 mcg/actuation (Ventolin HFA) 1 puff inhalation QID PRN 30 days amlodipine-benazepril 5-10 mg 1 cap PO DAILY atenolol 25 mg PO DAILY atorvastatin 20 mg PO BEDTIME buspirone 5 mg PO BID cetirizine (Zyrtec) 10 mg PO DAILY PRN clobetasol 0.05% 1 appl topical BID 2 weeks clonazepam 0.25 mg PO TID fluticasone furoate-vilanterol 100-25 mcg/dose (Breo Ellipta) 1 inh inhalation DAILY levothyroxine 112 mcg PO DAILY methimazole 10 mg PO DAILY pantoprazole 40 mg PO DAILY sennosides-docusate sodium 8.6-50 mg (Colace 2-In-1) 1 tab-cap PO BEDTIME simethicone 500 mg PO DAILY PRN 30 days sitagliptin phosphate (Januvia) 100 mg PO DAILY HPI HPI Comments History of Present Illness Details Patient was informed and verbally consented to the use of an ambient scribe for clinic note documentation during the visit. History of Present Illness The patient is a 60-year-old female presenting with rhinorrhea, congestion, sinus pain, cough, and wheezing. Respiratory symptoms - Patient presents with symptoms for 2 weeks. States symptoms started with rhinorrhea, congestion, sinus pain, sinus pressure - Reports sinus infection beginning two weeks ago. - Sinus symptoms progressed, leading to chest involvement. - States wheezing and shortness of breath for the last few days - Has been taking albuterol inhaler 4x a day - Denies any nausea. Reports 1 episode of vomiting a few days ago, but believes it was due to acid reflux. Review of Systems - Respiratory: Reports cough, wheezing, shortness of breath. Denies fever or chills. - Gastrointestinal: Reports vomiting associated with acid reflux. Denies diarrhea. - General: Denies fever, chills. - ENT: Reports sinus pain and pressure, cough. Physical Exam General Appearance: Normal appearance, well developed. No acute distress ENT: External ears and ear canals normal. TM without erythema or bulging. No significant nasal discharge or congestion present. Mild postnasal drip. Maxillar sinus TTP. Oropharynx clear without erythema or exudate. Head: Normocephalic, atraumatic Pulmonary: No respiratory distress. Clear to auscultation bilaterally. No wheezing or crackles Speaking in full sentences Cardiac: Regular rate and rhythm. No murmurs. Musculoskeletal: Moving all extremities spontaneously and against gravity Mental Status: Alert and Oriented x 3 Psychiatric: Normal mood. Normal affect. 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 Current occupational exposures/hazards: No Cognitive needs: No Hearing needs: No Vision needs: No Physical Exam Vital Signs: Last Vital Signs Temp 98.1 F 06/24/25 07:08 Pulse 99 06/24/25 07:08 Resp 17 06/24/25 07:08 BP 134/80 06/24/25 07:08 Pulse Ox 97 06/24/25 07:08 Oxygen Delivery Method Room Air 06/24/25 07:08 BMI result Body Mass Index 31.8 Assessment & Plan Assessment & Plan (1) Acute bacterial sinusitis: Code(s): J01.90 - Acute sinusitis, unspecified; B96.89 - Other specified bacterial agents as the cause of diseases classified elsewhere (2) Acute bronchitis: Code(s): J20.9 - Acute bronchitis, unspecified Qualifiers: Bronchitis organism: unspecified organism Qualified Code(s): J20.9 - Acute bronchitis, unspecified Plan Patient presents with rhinorrhea, congestion, sinus pressure/pain for 2 weeks. Low suspicion for pneumonia given clear lungs to auscultation, afebrile, and patient saturating well--no indication for CXR. Concern for bacterial sinusitis. Doxycycline prescribed. Patient advised to avoid direct sunlight while taking medication and to sit up for 30 minutes post administration of medication. Advised to avoid taking antacids, multivitamis, and supplements containing iron, calcium, Mg, or zinc within 2 hour of taking Doxycycline. Advised saline nasal sprays and humidification to also help with symptoms. Continue albuterol as needed. Discussed indications/symptoms that may require follow up at the walk in or with PCP. Medications: New doxycycline hyclate 100 mg PO BID 14 tabs 0RF Coding Level of Care Code Est Pt Level 3 (65612) Diagnoses Acute bacterial sinusitis J01.90; B96.89 Acute bronchitis, unspecified organism J20.9 Bronchitis organism: unspecified organism
[2025-06-24 07:08] VITALS: BP 134/80; PULSE 99; RESP 17; TEMP 36.7; O2SAT 97; BMI 31.8
== END 2025-06-24 07:42 | disposition home or self-care (01) ==
PROVIDERS: PCP Nurse Practitioner Family; Visit Provider Family Medicine
DX: J01.90 Acute sinusitis, unspecified (principal); B96.89 Other specified bacterial agents as the cause of diseases classified elsewhere; J20.9 Acute bronchitis, unspecified
CPT/HCPCS: 99213